=== PATIENT | male | born 1965 | race Caucasian/White ===

== ENCOUNTER 2024-09-30 15:32 | Inpatient (IN) | payer BC, SELFPAY ==
[2024-09-30] VITALS (15 sets, daily range): BP systolic 116–185; BP diastolic 69–101
[2024-09-30 11:47] LABS: Hematocrit 46.1 % (39.0-52.0); Hemoglobin 15.8 g/dL (13.0-18.0); Mean Corp Hgb Conc. 34.3 g/dL (33.0-37.0); Mean Corpuscular Volume 95.4 fL (80.0-94.0); Nucleated Red Blood Cells % 0 % (-); Platelet Count 231 10^3/uL (130-400); Red Cell Dist. Width 12.9 % (11.5-14.5)
[2024-09-30] MEDS: NITROSTAT (SUBLINGUAL) 0.4 MG SL ×2 (11:49→12:01)
[2024-09-30] MEDS: LOW STRENGTH ASPIRIN 324 MG PO (11:51)
--- NOTE | 2024-09-30 11:54 | ED.GENMED ---
History of Present Illness
General
Chief Complaint: Chest Pain
Source: patient
Exam Limitations: none
Time Seen by Provider: 09/30/24 11:40
History of Present Illness
History of Present Illness:
See MDM
Phy Exam
Physical Exam
Physical Exam:
See MDM
Scores
Heart Score for Chest Pain Patients
STEMI patient?: Yes
Course
Orders/Labs/Results
Orders:
Orders
09/30/24 Lunch
Cholesterol Lowering
At Your Request: Full Participation
Does patient need a safe tray?: No
Cholesterol Lowering: Sodium, 2 Gram
09/30/24 11:32
Electrocardiogram (*1) Urgent
Reason for Study: Chest Pain
Cardiac Monitoring- Treatment ONCE
EKG- Treatment ONCE
IV Insert/Care/Rem.- Treatment PRN
O2 Therapy [RESP] Urgent
Titrate/Wean O2 to maintain O2 sat greater than (%): 90
Special Instructions: Maintain sats >/=90%
Pulse Ox/spot Check [RESP] Urgent
Quantity: 1
Special Instructions: ON ROOM AIR
09/30/24 11:38
Complete Blood Count/With Diff Urgent
Comprehensive Metabolic Panel Urgent
Troponin I Urgent
09/30/24 11:43
Nitroglycerin Sublingual [Nitrostat (Sublingual)] 0.4 mg .ROUTE .STK-MED ONE
09/30/24 11:46
Aspirin Chewable [Low Strength Aspirin] 324 mg PO NOW STA
Nitroglycerin Sublingual [Nitrostat (Sublingual)] 0.4 mg .ROUTE .STK-MED ONE
Nitroglycerin Sublingual [Nitrostat (Sublingual)] 0.4 mg SL NOW STA
09/30/24 11:57
PTT Urgent
09/30/24 12:00
Nitroglycerin Sublingual [Nitrostat (Sublingual)] 0.4 mg SL NOW STA
09/30/24 12:21
0.9% Sodium Chloride 1000 ml [Nss] 1,000 ml IV BOLUS
09/30/24 13:28
Code Status As Directed
Resuscitation Status: Full Code
Activity As Directed
Activity Level: Out of Bed- Ad Sarah
Activity Frequency: Ad Sarah
Mold Maker Apprentice Procedure As Directed
Cardiac Cath Procedure: cardiac catheterization
Notify MD As Directed
Notify physician if: immediately for chest pain or bleeding from access site(s)
Radial Artery Hemostasis Method As Directed
Instructions:: 3 mL out at 1 hour post placement of band
3 mL out at 1 1/2 hours post placement of band
3 mL out at 2 hours post placement of band
Off at 2 1/2 hours post placement of band
If any oozing or hemotoma occurs:: re-inflate band and call provider
Site Checks As Directed
Check access site for bleeding/hematoma: Yes
Comment: on arrival, Q15min x4, Q30min x2, Q1 hr x2, Q2 hr x2, Q4 hr or per
protocol
Vascular Checks As Directed
Location: distal to access site - pulse check
Frequency: Other
Comment: on arrival, Q15min x4, Q30min x2, Q1 hr x2, Q2 hr x2, Q4 hr or per protocol
Vital Signs As Directed
Frequency: Other
Additional Instructions:: on arrival, Q15min x4, Q30min x2, Q1 hr x2, Q2 hr x2, then Q4 hr or per unit
protocol
09/30/24 13:35
Metoprolol [Lopressor] 12.5 mg PO BID
09/30/24 13:56
Cardiothoracic Surgery Consult Urgent
Consulting Provider: Joshua Hilliard
Was physician already notified: Yes
Reason for Consult: MV CAD
09/30/24 14:11
Heparin Protocol- PTT Orders As Directed
PTT per Heparin protocol: -Obtain CBC and baseline PTT - if not already collected.
-Obtain PTT 6 hours from start of infusion. Then, every 6 hours until 2 consecutive
PTT's are therapeutic. Then, PTT Daily.
-With each rate change, obtain PTT every 6 hours until 2 consecutive PTT's are
therapeutic. Then, PTT Daily.
Notify MD As Directed
Notify physician if: PTT is greater than or equal to 200.
09/30/24 14:15
Heparin 11237 Units/250 ml 25,000 units in 250 ml IV PER PROTOCOL
Weight to be used for heparin protocol in kilograms (kg):: 96.8
Protocol:: Cardiac Tx/Acute Coronary
PTT Goal Range to be used:: PTT 73 to 111 seconds
Order type:: Initial
INITIAL Infusion Dose (UNITS/KG/hr) & then follow protocol:: 15 units/kg/hr
Infusion Dose in UNITS/hr & then follow protocol (UNITS/hr):: 1,450
INFUSION RATE in mL/hr & then follow protocol (mL/hr):: 14.5
PTT less than or equal to 64 seconds:: Increase rate by 200 units/hr (+ 2 mL/hr)
PTT 64.1 to 72.9 seconds:: Increase rate by 100 units/hr (+ 1 mL/hr)
PTT 73 to 111 seconds:: Target Range. No change in rate.
PTT 111.1 to 130.9 seconds:: Decrease rate by 100 units/hr (- 1 mL/hr)
PTT 131 to 199.9 seconds:: HOLD for 1 hr. Then decrease rate by 200 units/hr (- 2 mL/hr)
PTT greater than or equal to 200 seconds:: HOLD for 2 hrs & Notify Provider. Then decrease by 200 units/hr (-
2 mL/hr)
Lab follow-up:: Each change, PTT q6h until 2 consecutive are therapeutic. Then PTT
daily.
09/30/24 14:30
Complete Blood Count/No Diff Urgent
Comment: Obtain baseline before beginning heparin infusion if not already collected
PTT Urgent
Comment: Obtain baseline before beginning heparin infusion if not already collected
09/30/24 14:34
Blood Pressure Bilateral Upper Extremities As Directed
Instructions:: If not already done obtain and record bilateral upper extremity bp.
Notify physician/PA/URBAN PLANNING TEACHER:: notify cardiac surgery PA, URBAN PLANNING TEACHER, or MD of a 20 mmHg or greater different.
Blood Pressure LEFT Upper Extremity ONCE
Blood Pressure RIGHT Upper Extremity ONCE
Rx Incentive Spirometry [RESP] Routine
Frequency: q1h while awake
Comment: instruction and assessment for postop 10 times x q1hr
09/30/24 15:20
Ticagrelor [Brilinta] 180 mg .ROUTE .STK-MED ONE
09/30/24 15:21
Heparin 5,000 units .ROUTE .STK-MED ONE
09/30/24 15:57
Type+Screen Routine
Troponin I Urgent
09/30/24 18:00
Rosuvastatin Calcium [Crestor] 20 mg PO QPM
09/30/24 19:00
Heparin 55190 Units/250 ml 25,000 units in 250 ml IV PER PROTOCOL
Weight to be used for heparin protocol in kilograms (kg):: 96.8
Protocol:: Cardiac Tx/Acute Coronary
PTT Goal Range to be used:: PTT 73 to 111 seconds
Order type:: Initial
INITIAL Infusion Dose (UNITS/KG/hr) & then follow protocol:: 15 units/kg/hr
Infusion Dose in UNITS/hr & then follow protocol (UNITS/hr):: 1,450
INFUSION RATE in mL/hr & then follow protocol (mL/hr):: 14.5
PTT less than or equal to 64 seconds:: Increase rate by 200 units/hr (+ 2 mL/hr)
PTT 64.1 to 72.9 seconds:: Increase rate by 100 units/hr (+ 1 mL/hr)
PTT 73 to 111 seconds:: Target Range. No change in rate.
PTT 111.1 to 130.9 seconds:: Decrease rate by 100 units/hr (- 1 mL/hr)
PTT 131 to 199.9 seconds:: HOLD for 1 hr. Then decrease rate by 200 units/hr (- 2 mL/hr)
PTT greater than or equal to 200 seconds:: HOLD for 2 hrs & Notify Provider. Then decrease by 200 units/hr (-
2 mL/hr)
Lab follow-up:: Each change, PTT q6h until 2 consecutive are therapeutic. Then PTT
daily.
09/30/24 20:00
Valsartan [Diovan] 20 mg PO BID
10/01/24 01:43
Cardiovascular Evaluation IN AM
Complete Blood Count/No Diff IN AM
Glycohemoglobin (HgbA1c) IN AM
Lipoprotein a (Lp a) [S] IN AM
PTT IN AM
Prothrombin Time IN AM
Troponin I Q8H
10/01/24 07:00
CT Chest W/o Iv Contrast Urgent
Reason For Exam: pre-operative cardiothoracic surgery
10/01/24 08:00
Aspirin Chewable [Low Strength Aspirin] 81 mg PO DAILY
10/02/24
Echo 2D MMode Color/Doppler Urgent
Reason for Study: nstemi
Cardiology Consult: Lam Patrick
10/02/24 05:11
Complete Blood Count/No Diff Q2D
Comment: Notify if platelet count is <130,000 or decreases by 50% from baseline
10/02/24 14:34
US Cerebrovascular Urgent
Reason For Exam: pre-operative cardiothoracic surgery
US Palmar Arch Artery Dupl LT Urgent
Reason For Exam: radial conduit evaluation
10/04/24 06:00
Complete Blood Count/No Diff Q2D
Comment: Notify if platelet count is <130,000 or decreases by 50% from baseline
10/06/24 06:00
Complete Blood Count/No Diff Q2D
Comment: Notify if platelet count is <130,000 or decreases by 50% from baseline
10/08/24 06:00
Complete Blood Count/No Diff Q2D
Comment: Notify MD if platelet count is <130,000 or decreases by 50% from baseline
10/10/24 06:00
Complete Blood Count/No Diff Q2D
Comment: Notify MD if platelet count is <130,000 or decreases by 50% from baseline
10/12/24 06:00
Complete Blood Count/No Diff Q2D
Comment: Notify MD if platelet count is <130,000 or decreases by 50% from baseline
10/14/24 06:00
Complete Blood Count/No Diff Q2D
Comment: Notify MD if platelet count is <130,000 or decreases by 50% from baseline
10/16/24 06:00
Complete Blood Count/No Diff Q2D
Comment: Notify MD if platelet count is <130,000 or decreases by 50% from baseline
Abnormal Lab Results
09/30/24 09/30/24 09/30/24
11:38 12:49 14:30
WBC 11.6 H 10^3/uL 12.2 H 10^3/uL
(4.8-10.8) (4.8-10.8)
MCV 95.4 H fL 95.4 H fL
(80.0-94.0) (80.0-94.0)
MCH 32.7 H pg 33.2 H pg
(27.0-31.0) (27.0-31.0)
Abs Immat Gran (auto) 0.1 H 10^3/uL
(0-0.05)
Absolute Neuts (auto) 9.1 H 10^3/uL
(1.4-6.5)
Neutrophils % 78.8 H %
(42.2-75.2)
Lymphocytes % 15.5 L %
(20.5-51.1)
APTT > 200 H* Sec
(23.4-35.0)
Chloride 109 H mmol/L
(98-107)
BUN 24 H mg/dl
(9-20)
Glucose 164 H mg/dl
(70-99)
Troponin I 0.806 H* ng/ml
POC ACT Low Range 232 H Seconds
(116-155)
09/30/24 14:30
09/30/24 11:38
Vital Signs
Initial and Last Documented VS:
Initial Vital Signs
Temp Pulse Resp BP Pulse Ox
97.8 F 85 20 164/89 98
09/30/24 11:32 09/30/24 11:32 09/30/24 11:32 09/30/24 11:32 09/30/24 11:32
Last Documented Vital Signs
Temp Pulse Resp BP Pulse Ox
99.9 F 94 16 116/57 94
10/02/24 11:06 10/02/24 12:30 10/02/24 11:06 10/02/24 11:07 10/02/24 11:06
MDM/Problems Addressed
Differential Diagnosis Includes:
HPI and MDM Narrative:
58-year-old male presenting with chest pressure and shortness of breath about an hour ago while he was riding his bike. Symptoms have been persistent but have improved. EKG was performed in triage. Although it does not read as a STEMI, the EKG
was brought back to me and there is concern for ST elevation in the inferior leads. Patient was brought back immediately and I assessed him. Patient still complaining of mild pressure rated as a 2/10. At this point, I discussed the case with
cardiology and we decided to call this as a STEMI alert based on his symptoms and the EKG finding
From a risk standpoint, patient states he has a family history of coronary artery disease. He denies a prior history of smoking but does indicate he has a history of high cholesterol but does not take medicines.
Patient was already given aspirin and nitroglycerin before the stimulator was called. IV fluids were started given that the concern for the STEMI is inferior. Blood pressure tolerated the nitroglycerin. After the STEMI alert was called, patient
given Brilinta and heparin bolus
Physical exam
General: Well appearing and non-toxic
HEENT: protecting airway
Neck: appears supple
CV: No evidence of cyanosis. Regular rate and rhythm
Resp: No accessory muscle use
Abd: Non-distended
Extremities: No deformities
Neuro: alert
Psych: Normal affect
Skin: Intact
Problems Addressed including Acute and Chronic Conditions affecting care:
1. STEMI
Acuity: acute
Prognosis: unstable
Details: Patient loaded with aspirin, Brilinta and heparin. Given the concern for inferior WI, will monitor blood pressure while giving nitro. IV fluid started
Updates
Interventional cardiology came to bedside and brought patient up to Mold Maker Apprentice
Differential Diagnosis (but not limited to): STEMI, NSTEMI
Testing considered: Chest x-ray
Drug therapy (if applicable): OTC meds, please see d/c instruction regarding Rx drugs
Amount and/or Complexity of Data Reviewed
Clinical info obtained from: Patient
External data reviewed: N/A
Labs I independently reviewed (but not limited to): Elevated troponin
Radiology: N/A
Pulse Ox: not hypoxic
EKG independently reviewed: Sinus rhythm, ST elevation inferiorly, normal axis
Movie Editor: Sinus rhythm
Critical Care: 33 min
Risk of Complication:
Social Determinants of health: Good social support
Discussed with other providers: Interventional cardiology
Escalation of Care includes Admit/Obs: Given the concern for STEMI, patient sent to the Mold Maker Apprentice
Occasional wrong word or 'sound a like' substitutions may have occurred due to the inherent limitations of voice recognition software. Read the chart carefully and recognize, using context, where substitutions have occurred.
*Pulse Oximetry
SaO2: 98
Oxygen Mode of Delivery: Room air
Patient hypoxic: no
*Critical Care Note
Total Time (30-74mins, 75-104mins- exclusive of procedures): 33 min
comment:
The high probability of a clinically significant, sudden or life threatening deterioration of the cardiovascular system(s) required my full and direct attention, intervention and personal management. The aggregate critical care time was 33 minutes.
This time is in addition to time spent performing reported procedures but includes the following:
[x] Data Review and interpretation
[x] Patient assessment and monitoring of vital signs
[x] Documentation
[x] Medication orders and management
ED Attending Note
-
Portions of this chart may have been created with voice recognition software.� Occasional wrong word or��sound alike� substitutions may have occurred due to the inherent limitations of voice recognition software.
Discharge Plan
Departure
Patient Disposition: [facility]
Date of Disposition: 09/30/24
Time of Disposition: 12:08
Admit to: electroplating laborer
Presentation/result/management discussed w/ accepting MD/DO: Interventional Cardiology
Discharge Problem:
ST elevation (STEMI) myocardial infarction
Interventions
Interventions:
*Risk Screen - Suicide Last Done: 09/30/24 11:32
*General Assessment Last Done: 09/30/24 12:41
*Neglect/Abuse Screening Last Done: 09/30/24 11:32
*ED- Fall Risk Assessment Last Done: 09/30/24 12:41
*ED COVID-19 Vaccine History Last Done: 09/30/24 12:41
*Nursing Disposition Last Done: 09/30/24 12:41
ED- Cardiac Assessment Last Done: 09/30/24 12:41
[2024-09-30 12:00] LABS: ALT (SGPT) 34 U/L (0-50); AST (SGOT) 43 U/L (17-59); Albumin 4.9 g/dl (3.5-5.0); Alkaline Phosphatase 47 U/L (38-126); Blood Urea Nitrogen 24 mg/dl (9-20); Calcium 10.0 mg/dl (8.4-10.2); Carbon Dioxide 22 mmol/L (22-30); Chloride 109 mmol/L (98-107); Glucose 164 mg/dl (70-99); Potassium 4.7 mmol/L (3.5-5.1); Sodium 143 mmol/L (135-145); Total Protein 7.9 g/dl (6.3-8.2); eGFR > 60.00
[2024-09-30 12:15] LABS: APTT 24.2 Sec (23.4-35.0)
[2024-09-30] MEDS: NSS 1000 IV (12:22)
--- NOTE | 2024-09-30 12:25 | EDRN ---
cardiology at bedside.
--- NOTE | 2024-09-30 12:32 | CON.CAR ---
Consultation
Consultation Request
Date/Time Consultation Requested: 09/30/2024
Date/Time Consultation Performed: 09/30/2024
Requesting Provider: Paramjit Cutler
Performing Provider: Paramjit Cutler
Reason for Consultation: inferior STEMI
Medical History
-
Chief Complaint: shortness of breath
History of Present Illness:
58-year-old male presenting with reported chest pressure and shortness of breath one hour prior to presentation while he was riding his bike. He says symptoms became worst after he had stopped riding and slowly imporved. He has had chest congestion
and more mild shortness of breath this week. On my interview with the patient, he endorses the shortness of breath symptoms today but no chest pain. No diaphoresis, nausea, emesis, lightheadedness, diziness, or palpitations. EKG was performed in
triage and perportedly demonstrated STEMI. Follow up EKG performed by me showed borderline inferior ST elevations and reciprocal changes. gold leaf laborer activated in this setting given concern for acute IN.
Patient states he has a family history of coronary artery disease. Personal history of HLD. Takes no meds.
In ED patient received 325 ASA, 180 ticag, and heparin bolus. Received nitro SL given hypertension.
Past Medical History
Past Medical History: Hypercholesterolemia
Social History
Tobacco: Non-Smoker
Family History
Family History: CAD
Allergies / Home Medications
Allergy/AdvReac Type Severity Reaction Status Date / Time
No Known Allergies Allergy Verified 09/30/24 12:11
Review of Systems
-
Respiratory: Trouble Breathing
Physical Exam
Vital Signs
Temp Pulse Resp BP Pulse Ox
36.6 C 85 20 128/69 98
09/30/24 11:32 09/30/24 11:32 09/30/24 11:32 09/30/24 12:06 09/30/24 11:57
Lab Results
09/30/24 11:38
09/30/24 11:38
Physical Exam
General: Well Developed
HEENT: Normocephalic
Cardiac: Regular Rhythm
Skin: Warm
Neuro: AO x 3
Psych: Calm
Impression / Plan
-
On personal interview with patient, he reports shortness of breath for the past week, worse today while biking and particularly after he stopped biking due to the pain. EKG with borderline inferior ST changes. Agree with emergent medical laboratory technical officer activation.
--> coronary angiography to define anatomy with possible PCI
--> further recs to follow
Data Reviewed
-
EKG: Tracing Personally Visualized and interpreted, Report Reviewed by me, Discussed with Physician, Discussed with Patient and Discussed with Family
Labs: Labs Reviewed by me
Critical Care Time (in minutes): 35
[2024-09-30 12:41] LABS: Troponin I 0.806 ng/ml
[2024-09-30 12:57] LABS: ACT-LR - POC 232 Seconds (116-155)
--- NOTE | 2024-09-30 13:18 | ITS.CL.PN ---
[facility] - Procedure Note
Procedure
Procedure Note:
CARDIAC CATHETERIZATION REPORT
Date of Procedure: 09/30/2024
Referring: Dr. Paramjit Cutler MD
Indication: inferior STEMI
PROCEDURE(S)
1. right heart catheterization
2. left heart catheterization
3. coronary angiography
ACCESS
1. 6F right radial artery (closure: radial band)
2. 6F right femoral vein (closure: manual hemostasis)
CATHETERS
1. 6F [place]
2. 6F JR4
3. 6F JL3.5
MODERATE SEDATION: 25 minutes of moderate sedation was utilized. An independent diploma medical assistant was present to assist with and help manage the patient's level of consciousness and physiologic status.
HEMODYNAMIC DATA
LV 131/17 (EDP 32) mmHg
AO 121/80 (mean 100) mmHg
RA 16 mmHg
RV 39/11 (EDP 19) mmHg
PA 36/22 (mean 28) mmHg
PCWP 22 mmHg
SaO2 98.9%
SvO2 70.6%
Hb 14.4 g/dL
CO/CI 4.98/2.26 L/min/m2
SVR 1350 dsc*-5
PVR 1.2 [place] units
CORONARY ANGIOGRAPHY
Dominance: Right
LM: Short vessel, no significant disease
LAD: Large vessel giving rise to a moderate caliber D1 and large branching D2. There is a 50 to 60% ostial LAD stenosis with significant pressure dampening on engagement with a 6 [place] guide. There is a serial smooth 40% stenosis just after D1.
Otherwise the vessel has diffuse mild disease.
LCx: Large vessel giving rise to a single large branching OM. There is a 95% ostial stenosis and otherwise mild disease.
RCA: Large vessel with a 100% thrombotic occlusion in the midportion. The RPDA fills via faint [id number] septal collaterals which appear to retrograde fill a likely large RPL system.
RADIATION: dose for 78 mGy; DAP 41 Gy*cm2; fluoroscopy time 7.6 min
CONCLUSIONS
1. Severe triple-vessel coronary artery disease as described.
2. Elevated biventricular filling pressures, moderate postcapillary pulmonary hypertension, and low normal cardiac index.
3. No aortic stenosis on hemodynamic pullback.
RECOMMENDATIONS
1. Presentation is consistent with acute heart failure in the setting of likely subacute closure of his RCA and concomitant severe LCx/LAD disease. The patient is not having acute ischemic symptoms and not in cardiogenic shock. Thus, the benefit of
urgent percutaneous revascularization of the RCA is unclear, and he will benefit most from multi-vessel CABG with FERNANDES to LAD and additional grafts to the large OM and the RPDA. It would be reasonable to also consider grafting the large branching D2
given his diffuse mid-LAD disease may eventually compromise retrograde filling of the D2. It may be reasonable to revascularize a large RPL branch if found, given that the faint nature of the collaterals did not allow full delineation of the distal
RCA system and adaquate backfilling of the RPL from the RPDA cannot be assured.
2. Diuresis with 40 IV lasix, then PRN
3. cont. asa daily, stop P2Y12 (note 180 ticag given at about 12 PM on 09/30)
4. high intensity statin for eventual goal LDL<55, check Lp(a)
5. check A1c
6. metop tartrate titrated to goal HR 60-80
7. low dose valsartan to be held per CTS prior to OR
Signed: Joshua Hilliard MD, PhD
--- NOTE | 2024-09-30 13:57 | W.PN.UPDATE ---
Update Note
Progress Note Update
Coronary angiography performed demonstrating severe MV CAD, RHC with elevated biventricular filling pressures without cardiogenic shock. Will admit for urgent CABG eval.
RECOMMENDATIONS
1. Presentation is consistent with acute heart failure in the setting of likely subacute closure of his RCA and concomitant severe LCx/LAD disease. The patient is not having acute ischemic symptoms and not in cardiogenic shock. Thus, the benefit of
urgent percutaneous revascularization of the RCA is unclear, and he will benefit most from multi-vessel CABG with FERNANDES to LAD and additional grafts to the large OM and the RPDA. It would be reasonable to also consider grafting the large branching D2
given his diffuse mid-LAD disease may eventually compromise retrograde filling of the D2. It may be reasonable to revascularize a large RPL branch if found, given that the faint nature of the collaterals did not allow full delineation of the distal
RCA system and adaquate backfilling of the RPL from the RPDA cannot be assured.
2. Diuresis with 40 IV lasix, then PRN
3. cont. asa daily, stop P2Y12 (note 180 ticag given at about 12 PM on 09/30)
4. high intensity statin for eventual goal LDL<55, check Lp(a)
5. check A1c
6. metop tartrate titrated to goal HR 60-80
7. low dose valsartan to be held per CTS prior to OR
8. maintain heparin drip until OR
9. currently no active ischemia or cardiogenic shock so IABP deferred; if concern for worsening ischemia, may need to reconsider
10. timing of CABG per CTS given received ticag 180 today (09/30)
11. trend trop to peak
[2024-09-30 14:40] LABS: Hematocrit 45.4 % (39.0-52.0); Hemoglobin 15.8 g/dL (13.0-18.0); Mean Corp Hgb Conc. 34.8 g/dL (33.0-37.0); Mean Corpuscular Volume 95.4 fL (80.0-94.0); Platelet Count 227 10^3/uL (130-400); Red Cell Dist. Width 12.9 % (11.5-14.5)
--- NOTE | 2024-09-30 15:01 | CONSULT.CT ---
Consultation
-
Date/Time Consultation Performed: 09/30/2024, 1500
Requesting Provider: Joshua Grace MD
Performing Provider: Abner Fowler PA-C
Reason for Consultation: Multivessel coronary artery disease, eval for CABG
Patient History
Physicians
Outpatient Staff Nurse Midwife: None
Inpatient Staff Nurse Midwife: Joshua Grace MD
History of Present Illness
Patient is a 58-year-old male who presented to the hospital today with complaints of intermittent shortness of breath and left arm discomfort. These episodes came on particular with riding his bike and were relieved with rest. He has had several
escalating episodes over the past week or so. He decided to come in today for evaluation of the emergency department. EKG was significant for ST elevation in the inferior leads. STEMI team was activated and the patient was taken urgently to the
[facility] for evaluation. Cardiac cath reveals a subacute occlusion of his right coronary artery as well as a left main equivalent with ostial LAD and circumflex lesions as well as faint [id number]-yx-[id number] collaterals. Decision was made at this time to
hold off on revascularization and consider CABG as a definitive revascularization strategy. Balloon pump was entertained however patient stabilized and his chest pain resolved.
Currently the patient is resting comfortably in bed post cath. His right radial was utilized for access. He denies any significant past medical history and is on no medications at home. He does relate that his cholesterol has been elevated in the
past but this is currently [id number]-xorc-[id number]. He has never had a CVA or TIA, bleeding or clotting disorders that he is aware of, melena or hematochezia, chest surgeries or procedures, no history of chemo or radiation, no history of COPD or asthma, no
history of prior MIs or arrhythmias. He does have a significant family history of heart disease. He has never smoked, consumes alcohol socially, and he runs a [employer]. He is independent in his ADLs.
Past Medical History
Past Medical History: Hypercholesterolemia (Diet controlled)
Past Surgical History
Left renal cancer removal
UroLift
Inguinal hernia repair
Family History
Family Medical History: CAD
Social History
Alcohol: Occasional
Drug: None
Tobacco: Non-Smoker
Employment: Employed
Allergies
Allergy/AdvReac Type Severity Reaction Status Date / Time
No Known Allergies Allergy Verified 09/30/24 12:11
Review of Systems
-
History Source: Patient and Family
General: Reports No Symptoms
HEENT: Reports No Symptoms
Respiratory: Reports SOB and CALIXTO
Cardiac: Reports No Symptoms
Abdomen/GI: Reports No Symptoms
: Reports No Symptoms
Musculoskeletal: Reports No Symptoms
Skin: Reports No Symptoms
Neurological: Reports No Symptoms
Vascular: Reports No Symptoms
Physical Exam
Vital Signs
Temp 97.8 F 09/30/24 13:48
Temp route: Oral 09/30/24 13:48
Pulse 80 09/30/24 14:30
Rhythm: Normal sinus rhythm 09/30/24 13:54
Resp Rate 16 09/30/24 13:48
Blood pressure 144/95 09/30/24 12:28
Blood pressure extremity used: Left upper arm 09/30/24 13:48
Position: Lying 09/30/24 13:48
MAP (cuff-Raudel Monitor) 110 09/30/24 12:28
SaO2 100 09/30/24 14:30
Oxygen Mode of Delivery Room air 09/30/24 13:54
Can the patient verbally communicate their pain? Yes 09/30/24 13:54
Pain scale ratin 09/30/24 12:06
Actual Weight 96.8 kg 09/30/24 14:10
Body Mass Index (BMI) 0.0 09/30/24 14:11
Labs
09/30/24 14:30
09/30/24 11:38
APTT 24.2 Sec (23.4-35.0) 09/30/24 11:57
Troponin I Cancelled 09/30/24 14:30
Exam
General: Well Developed, Well Nourished and No Apparent Distress
HEENT: Normocephalic and Anicteric
Neck: Trachea Midline
Respiratory: Clear
Cardiac: S1/S2 and Regular Rhythm
GI: Soft, Non Tender and Non Distended
Rectal: Deferred by Provider
Skin: Warm and Dry
Neuro: Awake, Alert and Oriented
Psych: Calm
Assessment / Plan
-
#Multivessel CAD, Left main equivalent, subacute occlusion of RCA
Given the patient's young age, multivessel coronary disease, and left main equivalent, we will consider CABG as the definitive revascularization strategy. I discussed the perioperative expectations with the patient and his and answered their
questions to their satisfaction. Preoperative risk stratification has been ordered. The patient will be independently evaluated by the attending surgeon who will comment definitively on the patient's surgical candidacy/timing. The patient was
given 180 mg of ticagrelor in the emergency department. Under normal circumstances this would require a 5-day washout. Given the patient's disease pattern he may require more urgent surgery or intra-aortic balloon pump should he become symptomatic
unresponsive to medical management. Given this we will obtain platelet mapping & TEG to assess response and/or coagulation cascade derangements. We will obtain vascular studies including a palmar arch evaluation this weekend should more urgent
surgery need to be pursued. Medical management of CAD per cardiology in the interim.
#Hyperlipidemia
Checking lipid panel. Will need high intensity statin post op for secondary prevention.
Data Reviewed
-
EKG: Tracing Personally Visualized and interpreted
[facility]: Image Personally Visualized and interpreted and Report Reviewed by me
Labs: Labs Reviewed by me
Total Time Spent with Patient (in minutes): 51
[2024-09-30 15:12] LABS: APTT > 200 Sec (23.4-35.0)
[2024-09-30] MEDS: LOPRESSOR 12.5 MG PO ×2 (15:44→22:10)
[2024-09-30 16:21] LABS: APTT 78.7 Sec (23.4-35.0)
[2024-09-30 16:36] LABS: Troponin I 1.540 ng/ml
[2024-09-30] MEDS: CRESTOR 20 MG PO (17:49)
--- NOTE | 2024-09-30 18:30 | PTCARENOTE ---
Pt from ED received post cardiac cath done via right radial arteryand right femoral vein. Pt reported SOB on arrival to IVU, oxygen sat. 99% on room air , resp rate 16. Pt diuresed >1800mls after receiving IV lasix and stated that he felt a little
better. Right radial band removed with problem, right femoral vein dressing dry and intact, no sign of bleeding or hematoma at either site. Telemetry shows sinus rhythm with 2 runs of 4 beats of NSVT. Troponins still trending upwards. Plan to start
IV heparin tonight.
[2024-09-30] MEDS: HEPARIN 25000 UNITS/250 ML IV (19:04)
[2024-09-30] MEDS: DIOVAN 20 MG PO (19:30)
[2024-09-30] MEDS: TYLENOL 650 MG PO (19:31)
--- NOTE | 2024-09-30 19:40 | PTCARENOTE ---
Pt rec'd at change of shift surrounded by family. No c/o cp. Pt does c/o mild CALIXTO, lungs clear r/a 98%. H/A 4 out of 10 Tylenol given. Heparin gtt started as prescribed at 1450 unit/hr.
--- NOTE | 2024-09-30 22:29 | PTCARENOTE ---
Pt remains cp free. still with mild h/a. cath sites intact.
[2024-10-01] VITALS (25 sets, daily range): BP systolic 79–162; BP diastolic 60–98; BMI 30.2
[2024-10-01] MEDS: TYLENOL 650 MG PO ×2 (01:40→23:10)
[2024-10-01] MEDS: NITROSTAT (SUBLINGUAL) 0.4 MG SL (01:42)
[2024-10-01 02:07] LABS: Hematocrit 42.7 % (39.0-52.0); Hemoglobin 15.0 g/dL (13.0-18.0); Mean Corp Hgb Conc. 35.1 g/dL (33.0-37.0); Mean Corpuscular Volume 93.0 fL (80.0-94.0); Platelet Count 234 10^3/uL (130-400); Red Cell Dist. Width 13.0 % (11.5-14.5)
--- NOTE | 2024-10-01 02:08 | PTCARENOTE ---
At 0130 went to pt's room to get am labs and VS. At that time pt stated ' I've been up about 10 mins every half an hour with left wrist pain. It's waking me up.' Pt denied pain radiating up arm. No swelling noted in wrist , good pulse. Pt appeared
anxious and while assessing pt he stated its back and really hurting again'. ecg completed, am labs drawn and sent right away. CT PA called to come see pt. O2 placed, SL NTg given. B/P post Ntg dropped to 79/60. Pt became diaphoretic,pale. At 0148
pt went into slow VT, lasting approx 40 beats. IVF started and after few mins b/p improved. See VS caption. Cardiology made aware of pts status by CT PA. Pt currently is resting. labs remain pending at this time.
[2024-10-01 02:11] LABS: INR 1.03; PT 13.8 Sec (11.4-14.6)
[2024-10-01 02:12] LABS: APTT 45.0 Sec (23.4-35.0)
--- NOTE | 2024-10-01 02:15 | W.PN.UPDATE ---
Update Note
Progress Note Update
-at 1:40 am came in urgently to evaluate pt for stuttering L hand pain, which he has been experiencing for about a week and may be his anginal equivalent. It feels 'achy, like it has been injured' 4/10 in intensity and comes and goes. He denies any
chest pressure, jaw or abdominal pain or nausea. SBP 150/98, in nsr 78 bpm, pOx 96% on 2L. Gave 1 sl Nitro and BP dropped to 79/60. Pt became diaphoretic and uncomfortable. He was noted to have a long run of 18 beats of AIVR, followed by brief
junctional rhythm and another 27 beat AIVR. 250 IVF were started and R2 pads placed on. BP recovered to 125/81, pt felt better and said that hand pain resolved. Got Tylenol for LOPEZ also. ECG without acute change with evidence of subacute inferior SD
(Q waves and ST elevation inferiorly).
-reviewed the episode and ECG with Dr. Hilliard- agreed with gentle fluids and no further Nitro.
-pt is comfortable now, denies any hand pain or any new sxs. Will give iv Morphine if any further sxs
-continue iv Heparin
-will continue to monitor closely
[2024-10-01 02:19] LABS: ALT (SGPT) 47 U/L (0-50); AST (SGOT) 239 U/L (17-59); Albumin 4.5 g/dl (3.5-5.0); Alkaline Phosphatase 47 U/L (38-126); Blood Urea Nitrogen 23 mg/dl (9-20); Calcium 9.3 mg/dl (8.4-10.2); Carbon Dioxide 22 mmol/L (22-30); Chloride 106 mmol/L (98-107); Estimated Creatinine Clearance 110 ml/min; Glucose 128 mg/dl (70-99); HDL Cholesterol 46 mg/dl; LDL Cholesterol, Calculated 214 mg/dl; Potassium 3.8 mmol/L (3.5-5.1); Sodium 137 mmol/L (135-145); Total Protein 7.3 g/dl (6.3-8.2); Very Low Density Lipoprotein 40 mg/dl (0-30); eGFR > 60.00
[2024-10-01] MEDS: KCL 40 MEQ PO (02:37)
[2024-10-01 02:54] LABS: Troponin I 12.800 ng/ml
[2024-10-01] MEDS: MORPHINE SULFATE 2 MG IV (03:13)
[2024-10-01 03:21] LABS: Magnesium 1.9 mg/dl (1.6-2.3)
--- NOTE | 2024-10-01 03:25 | PTCARENOTE ---
Pt called nursing to room c/o left wrist pain again 5 out of 10. Morphine given as ordered. Pt aware to remain on bedrest at this time. Urinal placed at bedside.
[2024-10-01] MEDS: MAGNESIUM SULFATE 102 GRAMS IV (03:53)
[2024-10-01] MEDS: DIOVAN 20 MG PO ×2 (07:30→20:10)
[2024-10-01] MEDS: LOW STRENGTH ASPIRIN 81 MG PO (07:30)
[2024-10-01] MEDS: LOPRESSOR 12.5 MG PO ×2 (07:30→20:10)
[2024-10-01 08:28] LABS: Glycohemoglobin (HgbA1c) 5.5 % (4.0-5.6)
[2024-10-01 09:10] LABS: APTT 60.0 Sec (23.4-35.0)
[2024-10-01 09:39] LABS: Troponin I 18.300 ng/ml
--- NOTE | 2024-10-01 09:39 | W.PN.CD ---
Today's Communication / Plan
-
ASA, heparin drip (with intensive monitoring), metoprolol, valsartan
-brilinta given in ED 09/30 ~12pm
plan for inpatient CABG: surgical eval underway
Impression / Plan
-
58 yo male with PMH of familial hypercholesterolemia is admitted with ACS. Taken to cath emergently for inferior ST elevation. Cath findings (below) suggest more chronic disease, and benefit from surgical revascularization.
# ACS, complex CAD
-threat to life
-cath results below
-became hypotensive after nitro: hold
-ASA, heparin drip (with intensive monitoring), metoprolol, valsartan
-brilinta given in ED 09/30 ~12pm
-plan for inpatient CABG: surgical eval underway
-echo
# Familial hypercholesterolemia
-LDL 214, Lp (a) pending
-has not been on meds for 10yrs
-back on statin: crestor 40mg daily
-may need PCSK9i as outpatient
CATH 09/30
CORONARY ANGIOGRAPHY
Dominance: Right
LM: Short vessel, no significant disease
LAD: Large vessel giving rise to a moderate caliber D1 and large branching D2. There is a 50 to 60% ostial LAD stenosis with significant pressure dampening on engagement with a 6 Kyrgyz guide. There is a serial smooth 40% stenosis just after D1.
Otherwise the vessel has diffuse mild disease.
LCx: Large vessel giving rise to a single large branching OM. There is a 95% ostial stenosis and otherwise mild disease.
RCA: Large vessel with a 100% thrombotic occlusion in the midportion. The RPDA fills via faint [id number]-[id number]-[id number] septal collaterals which appear to retrograde fill a likely large RPL system.
Physical Exam
Vital Signs/Labs
Vital Signs
Temp Pulse Resp BP Pulse Ox
98.2 F 79 20 141/98 99
10/01/24 07:24 10/01/24 08:00 10/01/24 07:24 10/01/24 07:00 10/01/24 08:09
09/30/24 10/01/24 10/02/24
06:59 06:59 06:59
Actual Weight 96.8 kg
10/01/24 01:43
10/01/24 01:43
PT 13.8 Sec (11.4-14.6) 10/01/24 01:43
INR 1.03 10/01/24 01:43
APTT 60.0 Sec (23.4-35.0) H 10/01/24 08:51
Magnesium 1.9 mg/dl (1.6-2.3) 10/01/24 01:43
Triglycerides 200 mg/dl (10-149) H 10/01/24 01:43
LDL Cholesterol, Calc 214 mg/dl 10/01/24 01:43
VLDL Cholesterol, Calc 40 mg/dl (0-30) H 10/01/24 01:43
HDL Cholesterol 46 mg/dl 10/01/24 01:43
LAB Results
09/30/24 09/30/24 09/30/24
11:38 14:30 15:04
Troponin I 0.806 H* Cancelled Cancelled
09/30/24 10/01/24 10/01/24
15:57 01:43 01:43
Troponin I 1.540 H* D Cancelled 12.800 H*
Physical Exam
Constitutional: No acute distress and Comfortable
EENT: Moist mucous membranes
Cardiovascular: Rhythm & rate is regular, Pedal edema is absent, JVD pressure is normal and Systolic murmur absent
Respiratory: Respiratory effort normal and Lungs clear to auscul.
Neuro/Psych: AO x 3
Data Reviewed
-
Date of Service: October 01, 2024
EKG: Other (Tele: SR 60s-70s, NSVT, AIVR)
Medical Tests (PFT, Pathology etc): Report Reviewed by me (cath report per note)
Labs: Labs Reviewed by me
[2024-10-01] MEDS: HEPARIN 25000 UNITS/250 ML IV ×2 (10:11→23:03)
[2024-10-01 16:13] LABS: APTT 67.5 Sec (23.4-35.0)
[2024-10-01 16:29] LABS: Troponin I 16.200 ng/ml
[2024-10-01] MEDS: CRESTOR 40 MG PO (17:46)
--- NOTE | 2024-10-01 18:31 | PTCARENOTE ---
Pt reported mild 0.5/10 discomfort in his left wrist throughout the day but no other symptoms. Troponin level peaked at 18.3. Pt OOB and up in his room . CT scan chest done in Dept. Telemetry showed sinus rhythm, no ectopy noted. Heparin infusion
not yet at a therapeutic level.
[2024-10-01 19:48] LABS: B.E. 3.0 mmol/L; HCO3 25.9 mmol/L (21-28); O2 Saturation % 97.7 % (94-98); PCO2 34 mmHg (35-48); PO2 74 mmHg (83-108)
[2024-10-01 23:20] LABS: APTT 84.1 Sec (23.4-35.0)
--- NOTE | 2024-10-01 23:45 | PTCARENOTE ---
Received pt at change of shift resting in bed. SR on tele, HR 80's-90's. Pt denies any chest/left wrist pain at this time. Right radial and femoral sites C.D.I. No bleeding or hematoma noted at this time. Heparin gtt infusing at 1,950 units/hr. PRN
Tylenol administered for discomfort per pt request--see JUN. Call retana within reach.
[2024-10-02] VITALS (8 sets, daily range): BP systolic 116–145; BP diastolic 57–86; BMI 29.9
[2024-10-02 05:19] LABS: Hematocrit 42.1 % (39.0-52.0); Hemoglobin 14.7 g/dL (13.0-18.0); Mean Corp Hgb Conc. 34.9 g/dL (33.0-37.0); Mean Corpuscular Volume 95.0 fL (80.0-94.0); Platelet Count 216 10^3/uL (130-400); Red Cell Dist. Width 12.7 % (11.5-14.5)
[2024-10-02 05:32] LABS: APTT 101.6 Sec (23.4-35.0)
[2024-10-02] MEDS: DIOVAN 20 MG PO (07:57)
[2024-10-02] MEDS: LOW STRENGTH ASPIRIN 81 MG PO (07:58)
[2024-10-02] MEDS: LOPRESSOR 12.5 MG PO ×2 (07:58→19:31)
--- NOTE | 2024-10-02 08:27 | PTCARENOTE ---
Assumed care. Patient denies pain in left arm, tenderness around the right thumb, denies shortness of breath. NSR HR 86, BP 145/86, Temp 100.2 orally
--- NOTE | 2024-10-02 11:29 | W.PN.UPDATE ---
Update Note
Progress Note Update
Procedure Type:�Isolated CABG
Perioperative Outcome Estimate %
Operative Mortality 1.15%
Morbidity & Mortality 6.88%
Stroke 1.07%
Renal Failure 0.767%
Reoperation 2.46%
Prolonged Ventilation 3.86%
Deep Sternal Wound Infection 0.172%
Long Hospital Stay (>14 days) 3.17%
Short Hospital Stay (<6 days)* 58.4%
[2024-10-02 11:46] LABS: AST (SGOT) 153 U/L (17-59); Albumin 4.3 g/dl (3.5-5.0); Alkaline Phosphatase 36 U/L (38-126); Blood Urea Nitrogen 13 mg/dl (9-20); Calcium 9.4 mg/dl (8.4-10.2); Carbon Dioxide 21 mmol/L (22-30); Chloride 106 mmol/L (98-107); Estimated Creatinine Clearance 110 ml/min; Glucose 171 mg/dl (70-99); Potassium 4.4 mmol/L (3.5-5.1); Sodium 136 mmol/L (135-145); Total Protein 6.9 g/dl (6.3-8.2); eGFR > 60.00
[2024-10-02 11:53] LABS: ALT (SGPT) 44 U/L (0-50)
--- NOTE | 2024-10-02 12:34 | W.PN.UPDATE ---
Update Note
Progress Note Update
I met with Mr. Pike and his partner. We discussed his pathology and the planned revascularization. We discussed the risks and benefits of surgery and the conduct. All questions were answered to the best of my ability. His TEG w/ plt mapping shows
no significant inhibition. Will plan for surgery first thing with me tomorrow.
Thank you for involving me in the care of this patient. Please feel free to contact me with any questions or concerns.
Juan David Kearns MD, MS
Cardiothoracic Surgeon
[facility]
This dictation was created using the [employer] dictation system. Please excuse any grammatical, typographical, or 'sound alike' errors.
[2024-10-02] MEDS: HEPARIN 25000 UNITS/250 ML IV (13:18)
--- NOTE | 2024-10-02 15:35 | PTCARENOTE ---
Addendum entered by Bobby Guidry RN 10/02/24 16:11:
Patient febrile 101.8. Urine culture collected and CXR done. Tylenol given
Original Note:
Patient febrile 101.8. Urine culture and CXR ordered
[2024-10-02] MEDS: TYLENOL 650 MG PO ×2 (15:38→22:13)
[2024-10-02 16:12] LABS: Urine Character Clear (Clear)
--- NOTE | 2024-10-02 16:32 | W.PN.CD ---
Today's Communication / Plan
-
CABG tomorrow
Impression / Plan
-
58 yo male with PMH of familial hypercholesterolemia is admitted with ACS. Taken to cath emergently for inferior ST elevation. Cath findings (below) suggest more chronic disease, and benefit from surgical revascularization.
# ACS, complex CAD
-threat to life
-cath results below
-became hypotensive after nitro: hold
-ASA, heparin drip (with intensive monitoring), metoprolol, valsartan
-brilinta given in ED 09/30 ~12pm
-plan for inpatient CABG tomorrow with Dr. Kearns
# ICM, HFrEF
- inferior RWMA, EF 40-45
- metop valsartan
- will titrate GDMT further post-revasc
# Familial hypercholesterolemia
-LDL 214, Lp (a) pending
-has not been on meds for 10yrs
-back on statin: crestor 40mg daily
-may need PCSK9i as outpatient
CATH 09/30
CORONARY ANGIOGRAPHY
Dominance: Right
LM: Short vessel, no significant disease
LAD: Large vessel giving rise to a moderate caliber D1 and large branching D2. There is a 50 to 60% ostial LAD stenosis with significant pressure dampening on engagement with a 6 Telugu guide. There is a serial smooth 40% stenosis just after D1.
Otherwise the vessel has diffuse mild disease.
LCx: Large vessel giving rise to a single large branching OM. There is a 95% ostial stenosis and otherwise mild disease.
RCA: Large vessel with a 100% thrombotic occlusion in the midportion. The RPDA fills via faint rpnk-is-zmbmm septal collaterals which appear to retrograde fill a likely large RPL system.
TTE 10/02
CONCLUSIONS
Left ventricular ejection fraction is 40-45%.
Basal to mid inferior, inferoseptal, and inferolateral hypokinesis.
Normal right ventricular size and function.
Physical Exam
Vital Signs/Labs
Vital Signs
Temp Pulse Resp BP Pulse Ox
38.8 C H 93 16 132/78 98
10/02/24 15:16 10/02/24 16:00 10/02/24 15:16 10/02/24 15:18 10/02/24 15:16
10/01/24 10/02/24 10/03/24
06:59 06:59 06:59
Actual Weight 98.3 kg 97.1 kg
10/02/24 05:11
10/02/24 10:08
PT 13.8 Sec (11.4-14.6) 10/01/24 01:43
INR 1.03 10/01/24 01:43
APTT 101.6 Sec (23.4-35.0) H 10/02/24 05:11
Magnesium 1.9 mg/dl (1.6-2.3) 10/01/24 01:43
Triglycerides 200 mg/dl (10-149) H 10/01/24 01:43
LDL Cholesterol, Calc 214 mg/dl 10/01/24 01:43
VLDL Cholesterol, Calc 40 mg/dl (0-30) H 10/01/24 01:43
HDL Cholesterol 46 mg/dl 10/01/24 01:43
LAB Results
09/30/24 09/30/24 09/30/24
11:38 14:30 15:04
Troponin I 0.806 H* Cancelled Cancelled
09/30/24 10/01/24 10/01/24
15:57 01:43 01:43
Troponin I 1.540 H* D Cancelled 12.800 H*
10/01/24 10/01/24
08:51 15:53
Troponin I 18.300 H* D 16.200 H*
Physical Exam
Constitutional: Comfortable
Cardiovascular: Rhythm & rate is regular
Respiratory: Respiratory effort normal
Neuro/Psych: AO x 3
Data Reviewed
-
Date of Service: October 02, 2024
Medical Decision Making: Reviewed Test Results
EKG: Tracing Personally Visualized and interpreted
Echo: Tracing Personally Visualized and interpreted
Labs: Labs Reviewed by me
[2024-10-02 16:35] LABS: Urine Red Blood Cell 0-2 /HPF (0-2)
--- NOTE | 2024-10-02 17:07 | PTCARENOTE ---
Report given, patient transferred to room 2266
[2024-10-02] MEDS: CRESTOR 40 MG PO (17:19)
--- NOTE | 2024-10-02 17:23 | CM ---
spoke to pt and in room. he is prev indep, lives with his in a 2 story home with 2 steps to enter. we discussed pre op CABG teaching including sternal and driving restrictions, he denies any dme's. he has the ct surgery book. he is
agreeable to a f/u visit from the me transitional care nurse after dc. he will be staying at his [place] home- [address] [place] [facility], after dc. cm role explained and all questions answered. plan is for cabg 10/03, cm to follow.
--- NOTE | 2024-10-02 17:37 | PTCARENOTE ---
Received pt from IVU and bedside report obtained; NSR on monitor and VSS; Heparin infusing see flow sheet for details; Lungs clear; positive bowel sounds; pt voiding yellow urine; palpable pulses throughout; no edema noted; PIV x2 patent; all preop
questions answered and educated pt on Heart pillow/ IS.
--- NOTE | 2024-10-02 20:00 | PTCARENOTE ---
Assumed care of patient at 1900. Patient found resting in bed at time of assessment. Patient is AOx4, follows commands appropriately, and moves all extremities. Lung sounds are clear and equal bilaterally, saO2 98% on RA. Heart sounds are audible,
normal palpable pulses, no observable edema. Patient has active BS in all four quadrants and is voiding in the bathroom. Skin is grossly intact. Patient has R FA PIV receiving heparin at 1950 units/hr and L AC PIV available for intermittent
infusion. No c/o pain. Patient clipped and received CHG bath in prep for surgery tomorrow. Call retana within reach.
[2024-10-02] MEDS: ROCEPHIN 1000 MG IV (22:31)
[2024-10-02] MEDS: STERILE WATER FOR INJECTION 10 ML IV (22:31)
--- NOTE | 2024-10-02 22:48 | PTCARENOTE ---
While assessing vital signs, patient noted to be febrile 101.4 degrees. Patient denied chills however did report 'feeling cold'. Patient's skin warm to touch. No other symptoms present. CT PA notified. Received orders for Rocephin. Tylenol
administered for fever.
--- NOTE | 2024-10-02 23:38 | W.PN.UPDATE ---
Update Note
Progress Note Update
-Pt febrile (TM 101.8), WBC 15.8. Denies symptoms
-U/A suspicious for UTI, culture is pending. Gave stat dose of empiric Rocephin 1g IV, Tylenol 650 mg PO
-CXR is clear
-For CABG in the AM
[2024-10-03] VITALS (14 sets, daily range): BP systolic 89–151; BP diastolic 63–110; BMI 29.7
[2024-10-03] MEDS: HEPARIN 25000 UNITS/250 ML IV (01:44)
[2024-10-03 04:44] LABS: Hematocrit 41.8 % (39.0-52.0); Hemoglobin 14.3 g/dL (13.0-18.0); Mean Corp Hgb Conc. 34.2 g/dL (33.0-37.0); Mean Corpuscular Volume 96.3 fL (80.0-94.0); Nucleated Red Blood Cells % 0 % (-); Platelet Count 214 10^3/uL (130-400); Red Cell Dist. Width 12.8 % (11.5-14.5)
[2024-10-03 04:54] LABS: APTT 73.6 Sec (23.4-35.0)
[2024-10-03 05:43] LABS: ALT (SGPT) 30 U/L (0-50); AST (SGOT) 73 U/L (17-59); Albumin 4.2 g/dl (3.5-5.0); Alkaline Phosphatase 34 U/L (38-126); Blood Urea Nitrogen 16 mg/dl (9-20); Calcium 9.3 mg/dl (8.4-10.2); Carbon Dioxide 22 mmol/L (22-30); Chloride 108 mmol/L (98-107); Estimated Creatinine Clearance 110 ml/min; Glucose 107 mg/dl (70-99); Magnesium 2.1 mg/dl (1.6-2.3); Potassium 4.5 mmol/L (3.5-5.1); Sodium 140 mmol/L (135-145); Total Protein 6.9 g/dl (6.3-8.2); eGFR > 60.00
[2024-10-03] MEDS: PROTONIX 40 MG PO (05:55)
[2024-10-03] MEDS: MAGNESIUM OXIDE 500 MG PO (05:56)
[2024-10-03] MEDS: LOPRESSOR 25 MG PO (05:56)
[2024-10-03] MEDS: BACTROBAN 2% OINTMENT 1 APPLIC NASAL ×2 (06:09→21:06)
--- NOTE | 2024-10-03 06:35 | W.CVOR.SURPR ---
CVOR Surgeon Immed Pre Op
-
I have examined this patient prior to performance of the scheduled procedure.
The patient's condition is unchanged from the time of the dictated/written History and
Physical and the patient is able to undergo the scheduled procedure.
Has history of prostatitis in past
CABG + Sternal Plating + LAAE
--- NOTE | 2024-10-03 06:46 | PTCARENOTE ---
Patient reassessed. Remains SR on the monitor. Final preparations for CVOR. Medications administered. Transferred to OR at approx 0630.
[2024-10-03 07:05] LABS: ACT+ - POC 167 Seconds (82-134)
[2024-10-03 07:24] LABS: Urine Character Clear (Clear)
[2024-10-03 08:11] LABS: Urine Squamous Cell 0-2 /LPF (Few)
[2024-10-03 08:12] LABS: Urine White Cell 0-2 /HPF (0-5)
--- NOTE | 2024-10-03 08:43 | CM ---
Reviewed chart. Mr. Pike is in the operating room today. Prior to admission he resides with his spouse in a two story home with two steps to enter. Prior to admission he was independent with ambulation and adls. He does not have any DME. He has
a prescription plan. Medical work-up in progress. The discharge plan is to return home with his spouse and a home visit by the Transitional Care Nurse when medically stable.
[2024-10-03 08:47] LABS: ACT+ - POC 494 Seconds (82-134)
[2024-10-03 09:15] LABS: ACT+ - POC 464 Seconds (82-134)
[2024-10-03 09:21] LABS: B.E. - POC 1.3 mmol/L; Glucose - POC 113 mg/dl (70-99); HCO3 - POC 26 mmol/L (21-28); Hematocrit - POC 43 % PCV (42-52); Hemodilution- POC No; Hemoglobin Calculated - POC 14.5; Ionized Calcium - POC 1.25 mmol/L (1.15-1.33); Lactate - POC < 0.30 mmol/L (0.36-0.75); O2 Saturation %Calculated-POC 99.9 % (94-98); PCO2 - POC 41 mmHg (35-48); PO2 - POC 309 mmHg (83-108); Potassium - POC 4.4 mmol/L (3.5-5.1); Sodium - POC 141 mmol/L (136-145); Specimen Type - POC Arterial; pH - POC 7.41 (7.35-7.45)
[2024-10-03 09:46] LABS: ACT+ - POC 515 Seconds (82-134)
[2024-10-03 10:11] LABS: B.E. - POC 0.3 mmol/L; Glucose - POC 159 mg/dl (70-99); HCO3 - POC 25 mmol/L (21-28); Hematocrit - POC 33 % PCV (42-52); Hemodilution- POC Yes; Hemoglobin Calculated - POC 11.2; Ionized Calcium - POC 1.07 mmol/L (1.15-1.33); Lactate - POC 0.40 mmol/L (0.36-0.75); O2 Saturation %Calculated-POC 99.9 % (94-98); PCO2 - POC 41 mmHg (35-48); PO2 - POC 289 mmHg (83-108); Potassium - POC 5.4 mmol/L (3.5-5.1); Sodium - POC 137 mmol/L (136-145); Specimen Type - POC Arterial; pH - POC 7.40 (7.35-7.45)
[2024-10-03 10:19] LABS: ACT+ - POC 508 Seconds (82-134)
[2024-10-03 10:32] LABS: B.E. - POC -2.4 mmol/L; Glucose - POC 170 mg/dl (70-99); HCO3 - POC 23 mmol/L (21-28); Hematocrit - POC 39 % PCV (42-52); Hemodilution- POC Yes; Hemoglobin Calculated - POC 13.3; Ionized Calcium - POC 1.06 mmol/L (1.15-1.33); Lactate - POC 1.17 mmol/L (0.36-0.75); O2 Saturation %Calculated-POC 99.2 % (94-98); PCO2 - POC 42 mmHg (35-48); PO2 - POC 150 mmHg (83-108); Potassium - POC 5.9 mmol/L (3.5-5.1); Sodium - POC 137 mmol/L (136-145); Specimen Type - POC Arterial; pH - POC 7.35 (7.35-7.45)
[2024-10-03 10:39] LABS: ACT+ - POC 134 Seconds (82-134)
--- NOTE | 2024-10-03 11:16 | W.PN.CT.SURG ---
CT Surgery Operative Note
-
CARDIAC SURGERY OPERATIVE REPORT
Preoperative Diagnosis: Multivessel Coronary Artery Disease with NSTEMI
Postoperative Diagnosis: Same
Procedure(s) Performed:
1. Standard Sternotomy with Aortic and Right Atrial Cannulation
2. Internal Mammary Artery Harvesting, Left
3. Multi arterial coronary artery bypass grafting x 4 (In situ FERNANDES to LAD, Ao to Radial to OM, Ao to RSVG to high diagonal, Ao to RSVG to RPDA)
4. Endoscopic harvesting of left radial artery and right lower extremity vein
5. Transesophageal echocardiography
6. Placement of Temporary Ventricular Pacing Wires
7. Rigid sternal fixation with 2 plates (16 mm screws throughout)
8. Left atrial appendage exclusion [35 mm device, serial #[id number]]
Date of Surgery: 10/03/2024
Comorbidities:
1. History of UTI and prostatitis
2. Multivessel coronary artery disease
3. STEMI, inferior wall with acute ischemic cardiomyopathy, LV EF of 40% with regional wall motion abnormality
4. Hyperlipidemia
5. Hypertension
Attending Surgeon: Juan David Kearns MD, MS
Assistants: Shelli Stover PA-C (present and necessary to case management assistant, retraction, suction, exposure, suture management, and wound closure under my direction). Juan David Greene PA-C (endo vein harvest), Lissett Reynolds PA-C (endo radial harvest), and Son
Lyndsey, PGY-2 Cardiac Surgery Resident
Anesthesiology: George Antoine MD and Gabriele Jernigan CRNA
Scrub and Circulating RNs: Lidia White, RN, Lois Archibald, RENATA
Test Desk Operator: Noreen Rinaldi CCP
Anesthesia: GETA
EBL: per perfusion records
Products: none
CPB Time: 89 minutes
Aortic Cross Clamp Time: 78 minutes
Indication(s) for Procedures: This is a 58-year-old male whose had about a week of chest pain and discomfort. He was found to have an inferior ST elevation LA with a total occlusion of the proximal RCA. He also had significant multivessel disease
in the left circulation. Given his young age and disease pattern, he was offered surgical revascularization with multi arterial use. As he was very active at baseline, I plan to rigidly fixate his sternum so that he can go back to his regular
activity once he has recovered.
Conduit(s) Quality:
FERNANDES -excellent, skeletonized
Radial�excellent, normal caliber with no dissections
RSVG -excellent, although larger caliber but minimal varicosities, the distal end that was thickened was cut off
Target(s) Quality:
RCA/PDA -good sized target, mean flow approximately 50 cc a minute at a pressure 80 mmHg, flow probe assessment of the graft yielded a mean flow of 24 cc a minute with a pulse index of 4.7
OM -excellent, good sized target, mean flow 15 cc a minute with a pulse index of 5.3
Diagonal�decent sized target, mean flow approximately 7 cc a minute with a pulse index of 4.3
LAD -excellent sized target, mean flow 14.7 cc a minute with a pulse index of 3.6
Findings: His left ventricular ejection fraction preoperatively was abnormal at 40% with significant regional wall motion abnormalities pertaining to the inferior wall hypokinesis. Following surgery his EF looked more robust at 55% and the inferior
wall hypokinesis had improved significantly. The mitral valve had a mild to maybe moderate degree of insufficiency preoperatively that improved to mild degree postoperatively. The FERNANDES was harvested in a skeletonized fashion. Following bypass
grafting, test dose cardioplegia was given down each distal and confirmed patency and hemostasis. Each distal was probed both proximally and distally to confirm disease and patency, respectively. Flow probe assessment was performed on all grafts
and demonstrated acceptable flows with good pulsatility indices. At the end of the case he did not require any blood products, he did not require any inotropic support, he was in sinus rhythm without pacing requirement. CI was 2.4 post surgery and
did sag to 1.4 post chest closure, responsive to volume.
Description of Procedure: The patient was taken to the operating room. Their identity and procedure to be performed were verified and they were positioned supine on the operating table. Induction via general anesthesia with endotracheal intubation
was performed and central venous access and arterial monitoring were inserted. A preoperative transesophageal echocardiogram was performed to assess cardiac function and valvular function. The patient was then prepped and draped from chin to feet in
a sterile fashion. A preoperative time-out was performed with all members of the team present. A midline chest incision was performed along with median sternotomy. Simultaneous endoscopic access of the left radial and right lower extremity for
saphenous vein harvest was obtained along with administration of an initial 5,000 units of IV heparin. A RulTract sternal retractor was positioned to exposure the left internal mammary bed. The mammary was harvested and found to have good flow. A
bulldog clamp was applied to the distal end of the mammary after dividing it. It was wrapped in a papaverine soaked RayTec and replaced back into the left hemithorax. The RulTract was exchanged for a median sternal retractor. The innominate vein was
isolated. Full heparinization was given (a total of 65,000 units). We created a pericardial well. The aortic cannulation site was chosen where it was soft, pliable, and free of calcium. Cannulation was performed with an arterial cannula in the
ascending aorta and a triple-stage venous cannula through the right atrial appendage. The arterial cannula line had an appropriate bounce and correlating pressures with test dosing. Next, a root vent/antegrade cannula was inserted into the ascending
aorta. The ACT was confirmed to be over 400 and retrograde autologous priming was performed before commencing cardiopulmonary bypass. The pulmonary artery was away from the aorta to facilitate a clamp site. The aortic cross-clamp was
placed after decreasing the flow on the bypass and mean arterial pressure. A total of 1.2L initial dose of antegrade Del-Nido cardioplegia solution was given and planned for re-dosing every 75 minutes as necessary. There was rapid electro-mechanical
arrest of the heart at 300 cc of cardioplegia. The left ventricle was observed for distention on echocardiogram and manual palpation. Cold slush was placed into a sponge and topically on the RV while we systemically cooled to 34 degrees centigrade.
Left atrial appendage was verified to be free of any thrombus or debris preoperatively and clipped flush to the base postoperatively.
I positioned the heart to expose the distal right coronary at the posterior descending artery. A [place] blade was used to expose the coronary and perform the arteriotomy. Coronary Cervantes scissors were used to enlarge the incision. The saphenous vein
was trimmed and beveled to an appropriate size. The distal anastomosis was performed using 7-0 prolene in an end-to-side fashion. Antegrade cardioplegia was administered into the graft. Appropriate hemostasis and flow were confirmed. The graft was
measured for length to the aorta and cut. Next the heart was positioned and rotated medially and the left atrial appendage was clipped with a 35mm device flush to the base. A suitable site on the obtuse marginal was chosen. We dissected and
prepared the distal target in a similar fashion. An end-to-side anastomosis was created with a 7-0 prolene after beveling the radial artery. Antegrade cardioplegia was administered into the graft with the aid of an Angiocath. Appropriate hemostasis
and flow were confirmed. The graft was measured for length to the aorta and cut. Next a very high diagonal vessel was identified and prepared in a similar fashion. The vein was beveled accordingly and end-to-side anastomosis was created with 7-0
Prolene in a running fashion. Test dose of antegrade cardioplegia demonstrated good hemostasis and flow down this vein graft. The proximal end was then cut to length to fit the aorta. A suitable target on the mid/distal left anterior descending
was identified. We dissected and prepared the distal target in a similar fashion. We retrieved the FERNANDES from the chest and created a pericardial opening while being cognizant of the phrenic nerve to facilitate the course of the mammary. The distal
end of the mammary was prepped and beveled to size. We verified orientation and length of the BRITTNI and found brisk flow. An end-to-side anastomosis was created with a 7-0 prolene. We temporarily released the bulldog clamp on the mammary to inspect
flow. Perfusion to the LAD territory was visualized and hemostasis was confirmed. The bull clamp was replaced on the mammary. The heart was filled and the root was distended with antegrade cardioplegia to make final assessment of graft length and
orientation. We created 3 aortotomies using a #11 blade then a 3.6mm aortic punch. The proximal anastomoses were created in an end-to-side fashion using 6-0 prolene. At the the same time, we re-warmed to 36.5 degrees centigrade. The bulldog clamp
was removed from the mammary. Temporary bipolar ventricular pacing wires were placed on the base of the right ventricle. The patient was placed in a Trendelenburg position and flows on bypass were lowered. The aortic cross clamp was removed and
flows were slowly brought back up. A 30-gauge needle was used to de-air the vein grafts. All bypass grafts were inspected and were free from kinking or twisting. The distal and proximal anastomoses appeared hemostatic. Once transesophageal
echocardiography appeared satisfactory for de-airing, the flows were temporarily lowered for root vent removal. After verifying acceptable parameters, we initiated weaning from cardiopulmonary bypass. Once we were off cardiopulmonary bypass, the
venous cannula was clamped and removed. A test dose of protamine was administered and the patient was monitored for any adverse reaction before resuming protamine. Once half of the protamine dose was delivered, pump suckers were turned off and the
systolic blood pressure was lowered for aortic decannulation. The aortic cannula was removed and pursestrings were tied down. All cannulation sites were oversewn with a 4-0 prolene. The mammary bed was inspected and hemostasis was confirmed. Once
the mediastinum was hemostatic, 19Fr Yimi drain was placed in the left pleural cavity and two 24Fr Yimi drains were placed within the pericardium. The sternum was approximated with 4 #7 single and 3 #8 double stainless steel wires. Given
activity's, additional plates were applied to the sternotomy closure with 16 mm screws throughout. Fascia was approximated with #1 vicryl suture. The subcutaneous, dermis and epidermis were closed in layers in a running fashion. The skin wound was
cleansed and dressed.
All instrument, sponge, and needle counts were confirmed to be correct x 2 at the end of the operation. The patient was transferred to the cardiac intensive care unit in critical but stable condition.
I, Dr. Juan David Kearns, was present, scrubbed for, and performed all critical elements of this procedure.
Juan David Kearns MD, MS
Cardiothoracic Surgeon
[facility]
This operative dictation was created using the [employer] dictation system. Please excuse any grammatical, typographical, or 'sound alike' errors
--- NOTE | 2024-10-03 11:19 | CON.INTV ---
Consultation
Consultation Request
Date/Time Consultation Requested: 10/03/2024-11:30 AM
Date/Time Consultation Performed: 10/04/2019 5-12 noon
Requesting Provider: Cardiovascular surgery
Performing Provider: Dr. Younger
Reason for Consultation: postoperative ventilator/critical care management
Medical History
-
Chief Complaint: CAD
History of Present Illness:
58-year-old male with a history of familial hyperlipidemia, ischemic cardiomyopathy found to have complex CAD and underwent CABG-steel fixer consulted for ventilator/critical care management postoperatively 10/03/2024. The patient is sedated on the
ventilator and review of systems was unobtainable. Operative records, chest tube output, pressors, insulin drip,, ventilator settings were reviewed.
Past Medical History
Past Medical History: None (CAD. Familial hyperlipidemia.)
Social History
Tobacco: Non-smoker
Drug: None
Living: With Family
Occupational Exposures: No known asbestos exposure
Environmental Exposures: No known tuberculosis exposure
Family History
Family History: CAD
Allergies / Home Medications
Allergies
Allergy/AdvReac Type Severity Reaction Status Date / Time
No Known Allergies Allergy Verified 09/30/24 12:11
Home Medications
�Medication �Instructions �Recorded �Confirmed �Last Taken �Type
No Meds [No Current Medications] 09/30/24 09/30/24 Unknown History
Review of Systems
-
Unable to Obtain full review of systems at this time due to: Other (Per HPI)
Vitals / Labs / Diagnostic Testing
Vital Signs
Temp Pulse Resp BP Pulse Ox
99.9 F 82 23 127/75 97
10/03/24 05:00 10/03/24 06:30 10/03/24 06:30 10/03/24 05:56 10/03/24 05:00
Laboratory Results
10/03/24
04:29
APTT 73.6 H
Diagnostic Testing:
Physical Exam
-
Exam:
Well-nourished and well-developed in no apparent distress
HEENT-atraumatic, normocephalic, oral tracheal intubation
Heart-regular rate and rhythm-no murmurs, rubs or gallops
Chest-clear to auscultation, no wheezes, crackles, median sternotomy bandage is not removed
Abdomen soft nondistended
Extremities-no cyanosis, clubbing, edema and good peripheral pulses
Integument-intact, no rashes, lesions or ecchymosis
Neurologically not alert, not oriented, not moving any of his extremities sedated on a ventilator
Assessment
-
58-year-old male with a history of familial hyperlipidemia, ischemic cardiomyopathy found to have complex CAD and underwent CABG-steel fixer consulted for ventilator/critical care management postoperatively 10/03/2024.
Multivessel complex CAD/STEMI with reduced preoperative EF-40%
Status post CABG CAD x 4-FERNANDES-LAD, AO to radial to OM, AO to RSVG to high diagonal, AO to RSVG to RPDA-Dr. Kearns 10/03/2024
Mild leukocytosis
Mild hyperglycemia
Conditions present prior to admission:
CAD.
History of prostatitis
Familial hyperlipidemia.
Hypertension
Plan
Ventilator settings reviewed
FiO2 will be weaned
Minute ventilation will be adjusted
Arterial blood gases will be monitored
Spontaneous breathing trial will be attempted with hopeful extubation after anesthesia/sedation wear off
Pulmonary artery catheter parameters will be followed
Pressors/antihypertensive/inotropes/diuretics will be provided as needed
Monitor chest tube output
Monitor hemoglobin
Monitor platelet count and coags
Transfuse blood product if needed
CT surgery following chest tubes
Monitor blood sugar
Insulin drip per protocol
Aspiration precautions
VAP prevention protocol
DVT prophylaxis
Early nutrition
Early mobilization
Critical care statement: A total of 50 minutes of critical care time was provided for this patient today. This includes management of ventilator, spontaneous breathing trial, arterial blood gases, pressors, of unstable vital signs, evaluation of the
patient at bedside, reviewing the patient's pertinent medical records including radiographs, microbiology, laboratory evaluations, and discussion with primary team and critical care nursing.
Diagnostic data:
Chest x-ray 10/02/2024-NAD
CT chest 10/01/2024-severe coronary artery calcification, lungs with no abnormalities
Data Reviewed
-
EKG: Report reviewed by me
Radiology: Report reviewed by me
Medical Tests (Nuc Med, Echo etc): Report reviewed by me
Labs: Labs reviewed by me
Old Records: Reviewed
Critical Care Time (in minutes): 50
[2024-10-03 11:26] LABS: B.E. - POC -1.2 mmol/L; Glucose - POC 160 mg/dl (70-99); HCO3 - POC 24 mmol/L (21-28); Hematocrit - POC 35 % PCV (42-52); Hemodilution- POC Yes; Hemoglobin Calculated - POC 11.9; Ionized Calcium - POC 1.37 mmol/L (1.15-1.33); Lactate - POC 0.99 mmol/L (0.36-0.75); O2 Saturation %Calculated-POC 99.9 % (94-98); PCO2 - POC 39 mmHg (35-48); PO2 - POC 270 mmHg (83-108); Potassium - POC 4.7 mmol/L (3.5-5.1); Sodium - POC 136 mmol/L (136-145); Specimen Type - POC Arterial; pH - POC 7.39 (7.35-7.45)
[2024-10-03 11:50] LABS: Glucose - Point of Care 168 mg/dl (70-99)
--- NOTE | 2024-10-03 11:50 | W.PN.UPDATE ---
Update Note
Progress Note Update
IV fluids: 1200
U.O.:� 500
Blood:� none
Wires:� V-wires
Drips: Levo @ 6, Cardizem @ 5, Precedex @ 0.5, Insulin
�
NEURO: sedated , pupils +2mm B/L
RESP: #8OT @24cm> 500/60%/14/5. Lungs clear B/L. 2 mediastinal (0cc on arrival) and L pleural (10cc on arrival) chest tubes to -20cm suction. Sanguineous drainage
CV: RRR +S1, S2, no S3, no�rub, no murmur. Dermabond to median sternotomy. RIJ w/[place] locked @ 48cm. PA 30/16; CVP 12
ABD: round, soft, no BS
EXT: no edema, +2/4 DP pulses B/L, no femoral bruit, RLE and LUE FELIBERTO wrap intact; right radial A-line intact
: Cobb with clear yellow urine
�
A/P: POD #0 s/p CABG x 4 (FERNANDES to LAD, Ao to Radial to OM, SVG to high diagonal, SVG to RPDA), Left atrial appendage exclusion [#35 mm device]
DELORIS: EF�42% (pre), improved to 50-55% (post)
- wean and extubate
# CAD
- will require ASA, Plavix, statin, beta-benoit
- Amio for AF prophylaxis
- Cardizem to oral Norvasc for radial patency x 3 months
# acute surgical blood loss anemia-expected
- trend CBC
�
# Hx Left renal carcinoma s/p partial nephrectomy
- limit nephrotoxic drugs
[2024-10-03] MEDS: LR 250 ML IV ×3 (12:00→19:09)
--- NOTE | 2024-10-03 12:00 | PTCARENOTE ---
Received pt at 1140 from [facility]; pt intubated and sedated; Pupils 3mm and reactive; NSR on monitor and VSS; RIBenjamín Obrien floated to 48. Right A-line and PIV x2 all lines leveled and zeroed; Insulin, Precedex, Cardizem, and Levo, see flow sheet for
details; Epicardial V wire in place and tested in [facility]; + rub; Lungs diminished; CT x3 to -20 wall suction no air leak no air leak noted; ETT 8 23 at lip; SIMV 40%/500/14/5; hypoactive bowel sound; Cobb catheter draining clear yellow urine; weak
Right ulnar radial pulse and palpable B/L DP; no edema noted; all surgical sites C/D?I; see nursing documentation for further details.
CI 1.61
CO 3.50
SVR 1257
[2024-10-03 12:11] LABS: B.E. -3.7 mmol/L; HCO3 22.1 mmol/L (21-28); O2 Saturation % 98.8 % (94-98); PCO2 42 mmHg (35-48); PO2 100 mmHg (83-108); Potassium 4.6 mMOL/L (3.5-5.1); Sodium 134 mMOL/L (136-145)
[2024-10-03 12:13] LABS: Hematocrit 35.9 % (39.0-52.0); Hemoglobin 12.5 g/dL (13.0-18.0); Platelet Count 189 10^3/uL (130-400)
[2024-10-03 12:23] LABS: INR 1.30; PT 16.5 Sec (11.4-14.6)
[2024-10-03 12:24] LABS: APTT 34.5 Sec (23.4-35.0)
--- NOTE | 2024-10-03 12:27 | PTCARENOTE ---
Respiratory at bedside and pt placed on CPAP.
[2024-10-03 12:29] LABS: Blood Urea Nitrogen 17 mg/dl (9-20); Estimated Creatinine Clearance 98 ml/min; Glucose 177 mg/dl (70-99); Magnesium 2.7 mg/dl (1.6-2.3)
--- NOTE | 2024-10-03 12:45 | W.PN.CD ---
Addendum entered and electronically signed by Rudy Brown MD 10/03/24 16:08:
I saw and examined the patient.
Aleksandar Anderson note was reviewed and I agree with the note.
Comment: Wean inotropes as able, OOB when able, now extubated, he has no new complaints
Original Note:
Today's Communication / Plan
-
Monitor tele
Impression / Plan
-
58 yo male with PMH of familial hypercholesterolemia is admitted with ACS. Taken to cath emergently for inferior ST elevation. Cath findings (below) suggest more chronic disease, and benefit from surgical revascularization.
# CAD s/p Multi arterial coronary artery bypass grafting x 4 (In situ FERNANDES to LAD, Ao to Radial to OM, Ao to RSVG to high diagonal, Ao to RSVG to RPDA) by Dr. Kearns 10/03/2024
- Pre-op LVEF 40% -> post op 55% with improved mitral insufficiency
-Was in sinus rythm during operation and did not require pacing, inotropic support or blood products
-EKG Normal sinus rhythm with diffuse T wave inversion common post-op
-On cardizem 2.5, norepi 6, dexa 0.3 - wean per protocol
-Cont to monitor tele
# ICM, HFrEF
- inferior RWMA, EF 40-45 -> post op 55%
- metop valsartan on hold
- will titrate GDMT further post-revasc
# Familial hypercholesterolemia
-LDL 214, Lp (a) pending - goal <55
-has not been on meds for 10yrs
-back on statin: crestor 40mg daily
-may need PCSK9i as outpatient
CATH 09/30
CORONARY ANGIOGRAPHY
Dominance: Right
LM: Short vessel, no significant disease
LAD: Large vessel giving rise to a moderate caliber D1 and large branching D2. There is a 50 to 60% ostial LAD stenosis with significant pressure dampening on engagement with a 6 [place] guide. There is a serial smooth 40% stenosis just after D1.
Otherwise the vessel has diffuse mild disease.
LCx: Large vessel giving rise to a single large branching OM. There is a 95% ostial stenosis and otherwise mild disease.
RCA: Large vessel with a 100% thrombotic occlusion in the midportion. The RPDA fills via faint [id number] septal collaterals which appear to retrograde fill a likely large RPL system.
TTE 10/02
CONCLUSIONS
Left ventricular ejection fraction is 40-45%.
Basal to mid inferior, inferoseptal, and inferolateral hypokinesis.
Normal right ventricular size and function.
Physical Exam
Vital Signs/Labs
Vital Signs
Temp Pulse Resp BP Pulse Ox
97.8 F 72 14 127/75 98
10/03/24 11:55 10/03/24 11:50 10/03/24 11:52 10/03/24 05:56 10/03/24 12:31
10/02/24 10/03/24 10/04/24
06:59 06:59 06:59
Actual Weight 97.1 kg 96.7 kg
10/03/24 11:42
PT 16.5 Sec (11.4-14.6) H 10/03/24 11:42
INR 1.30 10/03/24 11:42
APTT 34.5 Sec (23.4-35.0) 10/03/24 11:42
Magnesium 2.7 mg/dl (1.6-2.3) H 10/03/24 11:42
Triglycerides 200 mg/dl (10-149) H 10/01/24 01:43
LDL Cholesterol, Calc 214 mg/dl 10/01/24 01:43
VLDL Cholesterol, Calc 40 mg/dl (0-30) H 10/01/24 01:43
HDL Cholesterol 46 mg/dl 10/01/24 01:43
LAB Results
09/30/24 09/30/24 09/30/24
14:30 15:04 15:57
Troponin I Cancelled Cancelled 1.540 H* D
10/01/24 10/01/24 10/01/24
01:43 01:43 08:51
Troponin I Cancelled 12.800 H* 18.300 H* D
10/01/24
15:53
Troponin I 16.200 H*
Physical Exam
Cardiovascular: Rhythm & rate is regular and Rub present
Respiratory: Other (Ventilated )
GI: Soft and Other (Pacer wires and chest tubes present )
Responding to stimuli. Smiled when told he did a good job post-op.
Data Reviewed
-
Date of Service: October 03, 2024
[2024-10-03 12:52] LABS: Glucose - Point of Care 141 mg/dl (70-99)
[2024-10-03] MEDS: NOVOLOG FLEXPEN SC ×3 (12:59→15:38)
[2024-10-03] MEDS: NEURONTIN PO ×2 (12:59→15:16)
[2024-10-03] MEDS: ANCEF 10 IV ×2 (12:59)
[2024-10-03] MEDS: NSS 500 IV (13:00)
[2024-10-03 13:15] LABS: B.E. - POC -1.4 mmol/L; Blood Urea Nitrogen - POC 18 mg/dl (3-120); Chloride - POC 106 mmol/L (96-111); Creatinine - POC 0.98 mg/dl (0.3-1.0); Glucose - POC 183 mg/dl (70-99); HCO3 - POC 24 mmol/L (21-28); Hematocrit - POC 40 % PCV (42-52); Hemodilution- POC No; Hemoglobin Calculated - POC 13.6; Ionized Calcium - POC 1.23 mmol/L (1.15-1.33); Lactate - POC 1.49 mmol/L (0.36-0.75); O2 Saturation %Calculated-POC 95.1 % (94-98); PCO2 - POC 44 mmHg (35-48); PO2 - POC 80 mmHg (83-108); Potassium - POC 4.7 mmol/L (3.5-5.1); Sodium - POC 141 mmol/L (136-145); Specimen Type - POC Venous; pH - POC 7.36 (7.35-7.45)
[2024-10-03 13:21] LABS: B.E. - POC 2.5 mmol/L; Glucose - POC 112 mg/dl (70-99); HCO3 - POC 27 mmol/L (21-28); Hematocrit - POC 35 % PCV (42-52); Hemodilution- POC Yes; Hemoglobin Calculated - POC 12.0; Ionized Calcium - POC 1.02 mmol/L (1.15-1.33); Lactate - POC < 0.30 mmol/L (0.36-0.75); O2 Saturation %Calculated-POC 99.9 % (94-98); PCO2 - POC 40 mmHg (35-48); PO2 - POC 337 mmHg (83-108); Potassium - POC 4.8 mmol/L (3.5-5.1); Sodium - POC 137 mmol/L (136-145); Specimen Type - POC Arterial; pH - POC 7.43 (7.35-7.45)
--- NOTE | 2024-10-03 13:25 | PTCARENOTE ---
EPOC ABG reviewed with CTNP; respiratory at bedside and pt extubated; 6L NC; family at bedside.
[2024-10-03] MEDS: OFIRMEV 100 IV (13:27)
[2024-10-03] MEDS: TYLENOL PO (13:28)
[2024-10-03] MEDS: LOW STRENGTH ASPIRIN PO (13:32)
[2024-10-03] MEDS: LOPRESSOR PO (13:32)
[2024-10-03] MEDS: DILAUDID 0.25 MG IV ×2 (13:37→21:11)
[2024-10-03 13:54] LABS: Glucose - Point of Care 137 mg/dl (70-99)
[2024-10-03 14:55] LABS: Glucose - Point of Care 141 mg/dl (70-99)
[2024-10-03] MEDS: LOW STRENGTH ASPIRIN 81 MG PO (15:16)
[2024-10-03] MEDS: PACERONE PO (15:17)
[2024-10-03 15:40] LABS: Hematocrit 34.1 % (39.0-52.0); Hemoglobin 11.8 g/dL (13.0-18.0); Platelet Count 205 10^3/uL (130-400)
[2024-10-03 16:00] LABS: Glucose - Point of Care 131 mg/dl (70-99)
[2024-10-03] MEDS: ROXICODONE 5 MG PO (16:06)
[2024-10-03] MEDS: ANCEF 5 IV (17:20)
[2024-10-03] MEDS: TORADOL 15 MG IV (17:20)
[2024-10-03 17:59] LABS: Glucose - Point of Care 113 mg/dl (70-99)
[2024-10-03] MEDS: CRESTOR 40 MG PO (18:01)
[2024-10-03 18:20] LABS: Lipoprotein a (Lp a) <6 mg/dL (<=29)
[2024-10-03] MEDS: LEVOPHED 250 IV (19:08)
--- NOTE | 2024-10-03 19:30 | PTCARENOTE ---
assumed care of pt from previous RN. pt drowsy, oriented x4, bedrest s/p [facility]. R IJ cordis w/ swan floated to 48cm. R radial a-line. all lines leveled, zeroed, flushed. ST on tele-monitor. temp epicardial v-wires, not plugged into pulse generator.
backup settings VVI 40/10/2. POX 98-100% on [address] x3 (mediastinal x2, L pleural) to -20cm wall suction, draining sanguineous drainage. abd s/n, hypoactive BS. tolerating sips of water w/ PO meds. martin catheter draining clear, sharda colored
urine. all surgical sites stable, CDI. PIV x2 intact. see worklist for complete nursing assesment, interventions, gtt titrations, VS, & I&Os.
[2024-10-03] MEDS: SENOKOT-S PO (19:45)
[2024-10-03 20:12] LABS: Glucose - Point of Care 87 mg/dl (70-99)
[2024-10-03] MEDS: NORVASC 2.5 MG PO (21:06)
[2024-10-03] MEDS: PACERONE 200 MG PO (21:07)
[2024-10-03] MEDS: NEURONTIN 100 MG PO (21:07)
[2024-10-03] MEDS: TYLENOL 1000 MG PO (21:07)
[2024-10-03 22:16] LABS: Glucose - Point of Care 117 mg/dl (70-99)
[2024-10-04] VITALS (29 sets, daily range): BP systolic 100–129; BP diastolic 65–80; PULSE 95; O2SAT 92–93; BMI 30.5
--- NOTE | 2024-10-04 | PTCARENOTE ---
assessment remains unchanged. ST on tele-monitor. POX 96-98% on [address] drainage WNL. U/O <0.5ml/kg/h. CT PA aware. see worklist for VS, I&Os, and gtt titrations.
[2024-10-04 00:07] LABS: Glucose - Point of Care 114 mg/dl (70-99)
[2024-10-04] MEDS: ANCEF 5 IV ×2 (00:13→08:24)
[2024-10-04] MEDS: ROXICODONE 5 MG PO ×4 (00:13→14:10)
[2024-10-04] MEDS: FLEXERIL 5 MG PO ×2 (00:13→08:22)
--- NOTE | 2024-10-04 01:21 | W.PN.CT ---
Today's Communication / Plan
-
-pod #2
-CI 2.82, CO 6.12, SVR 849. Drips: Insulin only. Levo is off
-CT outputs: 2 meds 70/140, L pleur 60/120 in 12/24 hrs
-Tmax 101.5 overnight- getting Tylenol prn. (Temp was 101.8 preop on 10/02- got iv Rocephin x1. Ur cx 10/02: no growth)
-low UO - maintain Cobb, monitor (hx partial L nephrectomy)
-got Norvasc last night 10/03 for radial graft, continue
-d/c swan and a-line
-current meds (ASA, Plavix, Crestor, Norvasc, Lopressor, Amio, Feosol, Protonix)
-encourage IS, OOB
Assessment / Plan
-
- Mv-CAD - s/p Multi arterial CABG x 4 (In situ FERNANDES to LAD, Ao to Radial to OM, Ao to RSVG to high diagonal, Ao to RSVG to RPDA); Left atrial appendage exclusion [35 mm device]; Rigid sternal fixation with 2 plates (16 mm screws throughout) by
Kearns on 10/03/24, pod #1
- Intraop DELORIS: LVEF preop was abnormal at 40% with significant regional wall motion abnormalities pertaining to the inferior wall hypokinesis. Following surgery, his EF looked more robust at 55% and the inferior wall hypokinesis had improved
significantly. The mitral valve had a mild to maybe moderate degree of insufficiency preoperatively that improved to mild degree postoperatively.
- Multivessel coronary artery disease
- STEMI, inferior wall with acute ischemic cardiomyopathy, LV EF of 40% with regional wall motion abnormality
- History of UTI and prostatitis
- Hyperlipidemia
- Hypertension
- L renal CA - s/p partial nephrectomy
- Acute postop blood loss anemia
- Acute postop atelectasis
- Acute postop hypovolemia with subsequent hypervolemia
Discussed patient care with: Nursing and Care Team
Subjective
-
Date of Service: October 04, 2024
Objective Data
-
PT 16.5 Sec (11.4-14.6) H 10/03/24 11:42
INR 1.30 10/03/24 11:42
APTT 34.5 Sec (23.4-35.0) 10/03/24 11:42
Vital Signs
Vital Signs
Temp Pulse Resp BP Pulse Ox
100.3 F 103 18 110/76 97
10/04/24 01:00 10/04/24 01:10 10/04/24 01:10 10/04/24 00:07 10/04/24 01:10
CT Intake/Output/Weight
10/03/24 10/03/24 10/04/24
06:59 18:59 06:59
Intake Total 234 / 1194 907.8 / 1456.6 548.8 / 1456.6
Output Total 505 / 790 285 / 790
Balance 234 / 894 402.8 / 666.6 263.8 / 666.6
SaO2: 97
Physical Exam
-
General: Awake and AOx3
Cardiovascular: Regular rate & rhythm and No Murmurs
Respiratory: Decreased Breath Sounds
Sternum: Stable
Incision: Clean, Dry and Intact
Extremities: No Edema
Abdomen: soft, nontender, nondistended, + decreased bowel sounds
Data Reviewed
-
Lab Results: Results Reviewed
Medications: Active Meds Reviewed
Chest X-Ray: Report Reviewed and Image Reviewed
ECG: Report Reviewed and Image Reviewed
[2024-10-04 02:13] LABS: Glucose - Point of Care 109 mg/dl (70-99)
[2024-10-04 02:32] LABS: Hematocrit 31.9 % (39.0-52.0); Hemoglobin 11.1 g/dL (13.0-18.0); Mean Corp Hgb Conc. 34.8 g/dL (33.0-37.0); Mean Corpuscular Volume 98.8 fL (80.0-94.0); Platelet Count 206 10^3/uL (130-400); Red Cell Dist. Width 13.0 % (11.5-14.5)
[2024-10-04 02:51] LABS: Blood Urea Nitrogen 24 mg/dl (9-20); Calcium 8.4 mg/dl (8.4-10.2); Carbon Dioxide 27 mmol/L (22-30); Chloride 108 mmol/L (98-107); Estimated Creatinine Clearance 98 ml/min; Glucose 110 mg/dl (70-99); Magnesium 2.4 mg/dl (1.6-2.3); Potassium 4.6 mmol/L (3.5-5.1); Sodium 137 mmol/L (135-145); eGFR > 60.00
[2024-10-04] MEDS: TYLENOL 650 MG PO (03:03)
[2024-10-04 04:00] LABS: Glucose - Point of Care 110 mg/dl (70-99)
--- NOTE | 2024-10-04 04:30 | PTCARENOTE ---
no acute changes. VSS. AM labs collected and sent. EKG completed. CT drainage WNL. U/O <0.5ml/kg/h. CT PA aware. swan and a-line d/c'd per CT PA orders. AM plan of care discussed w/ pt, pt in agreement.
[2024-10-04] MEDS: TYLENOL 1000 MG PO ×3 (06:10→20:09)
[2024-10-04 06:13] LABS: Glucose - Point of Care 96 mg/dl (70-99)
--- NOTE | 2024-10-04 07:36 | W.PN.INTV ---
Today's Communication / Plan
Recommendations
tolerated extubation
Wean FiO2
Monitor chest tube output
Wean insulin drip off
Likely transfer to telemetry-manager revenue will sign off-call pulmonary if respiratory issues arise
Assessment
-
58-year-old male with a history of familial hyperlipidemia, ischemic cardiomyopathy found to have complex CAD and underwent CABG-manager revenue consulted for ventilator/critical care management postoperatively 10/03/2024.
Multivessel complex CAD/STEMI with reduced preoperative EF-40%
Status post CABG CAD x 4-FERNANDES-LAD, AO to radial to OM, AO to RSVG to high diagonal, AO to RSVG to RPDA-Dr. Kearns 10/03/2024
Mild leukocytosis
Mild hyperglycemia
Conditions present prior to admission:
CAD.
History of prostatitis
Familial hyperlipidemia.
Hypertension
Plan
Tolerated extubation
Wean FiO2
Encourage incentive spirometry
Increase activity
Aspiration precautions
Pressors have been weaned
Continue to monitor chest tube output
Follow hemoglobin
Continue to follow platelet count and coags
Transfuse blood product as needed
CT surgery following chest tubes as well
Follow blood sugar
Insulin supplementation continues as needed
Early nutrition
Early mobilization
DVT prophylaxis
Reviewed with at the bedside
Patient will likely be discontinued off insulin drip and be transferred to telemetry phase-call pulmonary if respiratory issues arise
Reviewed the patient's pertinent medical records including radiographs, microbiology, laboratory evaluations, and discussion with primary team, and critical care nursing.
Diagnostic data:
Chest x-ray 10/02/2024-NAD
CT chest 10/01/2024-severe coronary artery calcification, lungs with no abnormalities
Subjective Dataa
Subjective Data
Date of Service:
Date of Service: October 04, 2024
Chief Complaint: Fire Hazard Inspector Follow Up, Pulmonary Follow Up and Vent Management Follow Up
Subjective:
tolerated extubation, some chest tube related pain, minimal shortness of breath, no abdominal pain
Review of Systems
General: Other ( Per HPI)
Objective Data
Data Reviewed
Vital Signs / I&O / Oxygen:
Vital Signs
Temp Pulse Resp BP Pulse Ox
100.9 F H 100 18 116/74 95
10/04/24 07:00 10/04/24 07:00 10/04/24 07:00 10/04/24 06:22 10/04/24 07:00
Intake and Output
10/03/24 10/04/24 10/05/24
06:59 06:59 06:59
Intake Total 1194 / 1194 1621.1 / 1621.1
Output Total 300 / 300 965 / 965
Balance 894 / 894 656.1 / 656.1
SaO2 [CPAP] 98
SaO2 [SIMV] 100
SaO2 95
Nasal Cannula flow liters per 2
minute
Physical Exam
General: Respiratory Distress (n) and Comfortable
HEENT: Normocephalic, Anicteric and Moist Mucous Membranes
Cardiovascular: Regular Rhythm
Respiratory: Wheeze (n), Crackles ( rare basilar), Non-Labored Respirations, Accessory Resp Muscle Use (n) and Chest Tube
GI: Soft, Non Distended and Non Tender
Neurology: Awake, Alert and No Motor Deficits
Skin: Warm, Good Color, Cyanosis (n) and Jaundice (n)
Labs/Micro/Reports
Lab Data
10/04/24 02:10
10/04/24 02:10
Laboratory Results
10/03/24
11:42
PT 16.5 H
INR 1.30
APTT 34.5
pH 7.33 L
pCO2 42
pO2 100
HCO3 22.1
O2 Delivery Level
Microbiology
10/02/24 15:57 Urine Urine Culture - Final
NO GROWTH
--- NOTE | 2024-10-04 07:39 | W.PN.ANS.POP ---
Anesthesia Post Operative
- Anesthesia Post Op Note
Vital Signs Stable-See Nursing Note: Yes
Airway Patent: Yes
Adequate Pain Control: Yes
Change in Mental Status: No
Current Postoperative Nausea & Vomiting: No
Anesthesia Complications: No
General Anesthetic Recall: No
Unplanned Admission: No
Post Op Hydration Adequate: Yes
[2024-10-04] MEDS: NEURONTIN 100 MG PO ×3 (08:22→22:30)
[2024-10-04] MEDS: PLAVIX 75 MG PO (08:22)
[2024-10-04] MEDS: LOW STRENGTH ASPIRIN 81 MG PO (08:22)
[2024-10-04] MEDS: FEOSOL 325 MG PO (08:22)
[2024-10-04] MEDS: VITAMIN C 500 MG PO (08:22)
[2024-10-04] MEDS: NORVASC 2.5 MG PO (08:22)
[2024-10-04] MEDS: PACERONE 200 MG PO ×3 (08:22→22:29)
[2024-10-04] MEDS: SENOKOT-S 1 TABLET PO ×2 (08:23→20:09)
[2024-10-04] MEDS: MAGNESIUM OXIDE 500 MG PO ×2 (08:23→20:09)
[2024-10-04] MEDS: PROTONIX 40 MG PO (08:23)
[2024-10-04] MEDS: LIDOCAINE 4% PATCH 1 PATCH TOPICAL (08:23)
[2024-10-04] MEDS: BACTROBAN 2% OINTMENT 1 APPLIC NASAL ×2 (08:23→20:10)
[2024-10-04] MEDS: LOPRESSOR 12.5 MG PO ×2 (08:23→20:09)
--- NOTE | 2024-10-04 08:42 | W.PN.CD ---
Today's Communication / Plan
-
Febrile overnight monitor
ISB and OOB ambulate as able
Impression / Plan
-
58 yo male with PMH of familial hypercholesterolemia is admitted with ACS. Taken to cath emergently for inferior ST elevation. Cath findings (below) suggest more chronic disease, and benefit from surgical revascularization.
# CAD s/p Multi arterial coronary artery bypass grafting x 4 (In situ FERNANDES to LAD, Ao to Radial to OM, Ao to RSVG to high diagonal, Ao to RSVG to RPDA) by Dr. Kearns 10/03/2024
- Pre-op LVEF 40% -> post op 55% with improved mitral insufficiency
-Was in sinus rythm during operation and did not require pacing, inotropic support or blood products
-EKG Normal sinus rhythm with diffuse T wave inversion common post-op
-Off drips
-Cont to monitor tele
# ICM, HFrEF
- inferior RWMA, EF 40-45 -> post op 55%
- metop valsartan on hold
- will titrate GDMT as BP allows
- will need a salvager helper
# Familial hypercholesterolemia
-LDL 214, Lp (a) pending - goal <55
-has not been on meds for 10yrs
-back on statin: crestor 40mg daily
-may need PCSK9i as outpatient
Febrile overnight
- monitor
- received Rocephin prior to OR
CATH 09/30
CORONARY ANGIOGRAPHY
Dominance: Right
LM: Short vessel, no significant disease
LAD: Large vessel giving rise to a moderate caliber D1 and large branching D2. There is a 50 to 60% ostial LAD stenosis with significant pressure dampening on engagement with a 6 Polish guide. There is a serial smooth 40% stenosis just after D1.
Otherwise the vessel has diffuse mild disease.
LCx: Large vessel giving rise to a single large branching OM. There is a 95% ostial stenosis and otherwise mild disease.
RCA: Large vessel with a 100% thrombotic occlusion in the midportion. The RPDA fills via faint [id number] septal collaterals which appear to retrograde fill a likely large RPL system.
TTE 10/02
CONCLUSIONS
Left ventricular ejection fraction is 40-45%.
Basal to mid inferior, inferoseptal, and inferolateral hypokinesis.
Normal right ventricular size and function.
Physical Exam
Vital Signs/Labs
Vital Signs
Temp Pulse Resp BP Pulse Ox
100.3 F 97 16 116/74 96
10/04/24 08:00 10/04/24 08:00 10/04/24 08:00 10/04/24 06:22 10/04/24 08:00
10/03/24 10/04/24 10/05/24
06:59 06:59 06:59
Actual Weight 213 lb 2.992 oz 218 lb 14.704 oz
10/04/24 02:10
10/04/24 02:10
PT 16.5 Sec (11.4-14.6) H 10/03/24 11:42
INR 1.30 10/03/24 11:42
APTT 34.5 Sec (23.4-35.0) 10/03/24 11:42
Magnesium 2.4 mg/dl (1.6-2.3) H 10/04/24 02:10
Triglycerides 200 mg/dl (10-149) H 10/01/24 01:43
LDL Cholesterol, Calc 214 mg/dl 10/01/24 01:43
VLDL Cholesterol, Calc 40 mg/dl (0-30) H 10/01/24 01:43
HDL Cholesterol 46 mg/dl 10/01/24 01:43
LAB Results
10/01/24 10/01/24
08:51 15:53
Troponin I 18.300 H* D 16.200 H*
Physical Exam
Constitutional: No acute distress and Comfortable
EENT: Anicteric
Cardiovascular: Rhythm & rate is regular and Pedal edema is absent
Respiratory: Other (poos inspiratory effort)
GI: Soft
Neuro/Psych: AO x 3
Data Reviewed
-
Date of Service: October 04, 2024
EKG: Tracing Personally Visualized and interpreted (sr)
Echo: Report Reviewed by me
Labs: Labs Reviewed by me
[2024-10-04 08:44] LABS: Glucose - Point of Care 108 mg/dl (70-99)
--- NOTE | 2024-10-04 08:45 | PTCARENOTE ---
Assumed care of patient at 0700. Pt is awake, alert, and oriented. Pt with complaints of pain, PRN Roxicodone and Flexeril administered for relief. Pt remains SR/ST HR 90's-106. BP 104/71 MAP 80. Pulse 96% on 2L nasal cannula. Mediastinal chest
tubes x2 and left pleural chest tube in place, no sign or air leak or crepitus, drainage serosanguineous. Pt tolerating clear liquid diet. Cobb catheter d/c'd per order, previously draining sharda urine. Midsternal incision approximated and BOOKMAKER MAP.
Right leg incision with yoselyn wrap overlay in place. Right groin puncture intact. Left radial incision with yoselyn wrap in place. Right IJ cordis in place with KVO. Pt remains on insulin gtt per glycemic protocol.
[2024-10-04] MEDS: NOVOLOG FLEXPEN 4 UNITS SC (08:58)
[2024-10-04] MEDS: NSS IV (10:22)
[2024-10-04 10:58] LABS: Glucose - Point of Care 123 mg/dl (70-99)
--- NOTE | 2024-10-04 11:30 | W.PN.UPDATE ---
Update Note
Progress Note Update
No pacing required overnight. On bipolar ventricular lead was removed without difficulty. Bedrest x 1 hour vital signs every 15 minutes x 4 per protocol.
--- NOTE | 2024-10-04 11:48 | CM ---
Reviewed chart. Met with and Mrs. Pike to review discharge plans. He states he is feeling okay. He states prior to admission he resides with his spouse in a three story home with two steps to enter. He states he has a full flight of steps to
get to his bedroom. He states he has a full bathroom on each level. He states prior to admission he was independent with ambulation and adls. He does not have any DME in the home. He states he has a prescription plan. Medical work-up in progress.
The discharge plan is to return home with his spouse and a home visit by the Transitional Care Nurse when medically stable.
--- NOTE | 2024-10-04 12:45 | PTCARENOTE ---
Pleural chest tube d/c'd. V wire pulled by CT ALEJANDRA, [place]. BP monitored, currently 116/78 MAP 87. Remains SR with HR 103. Pulse oximetry 96% on 2L nasal cannula. Pulse oximetry 88% on room air. Continued use of IS encouraged.
[2024-10-04 13:38] LABS: Glucose - Point of Care 93 mg/dl (70-99)
--- NOTE | 2024-10-04 14:02 | PTCARENOTE ---
Mediastinal chest tubes d/c'd without issue. Insulin gtt d/c'd. Pt assisted OOB to chair without issue.
[2024-10-04] MEDS: NOVOLOG FLEXPEN SC (14:03)
[2024-10-04] MEDS: FERRLECIT 110 MG IV (14:10)
[2024-10-04] MEDS: CRESTOR 40 MG PO (17:04)
--- NOTE | 2024-10-04 17:15 | PTCARENOTE ---
assisted pt w ambulating in hallway, tolerated. VSS, denies pain.
--- NOTE | 2024-10-04 20:00 | PTCARENOTE ---
Assumed care of patient at 1900. Patient found oob in chair at time of assessment. Patient is AOx4, follows commands appropriately, moves all extremities. Lung sounds have fine crackles present in the bases, saO2 on RA 88% patient placed on 2L
improved to 94%. IS at 1000. Heart sounds are audible, patient is ST/SR on the monitor. Patient has normal palpable R radial and weak but palpable L ulnar. Dorsalis pedis pulses normal and palpable. Patient has trace L hand edema. Patient has active
BS in all four quadrants. They are DTV. There is a sternal incision approx with surg adhesive SO, L radial incision approx with surg adhesive SO, R groin puncture approx with surg adhesive CYTOPATHOLOGIST, and RLE incision approx with surg adhesive SO.
Patient febrile given 1000 mg tylenol. All other VSS. Call retana within reach.
[2024-10-04] MEDS: REMOVE LIDOCAINE PATCH 1 PATCH REMOVE (20:11)
[2024-10-05] VITALS (12 sets, daily range): BP systolic 94–137; BP diastolic 54–82; PULSE 92; O2SAT 91–93; BMI 30.8
--- NOTE | 2024-10-05 | PTCARENOTE ---
Patient reassessed. Remains SR on the monitor. Patient c/o SOB while attempting to sleep. Denies pain. O2 increased to 4L for night. Call retana within reach.
[2024-10-05] MEDS: ROXICODONE 5 MG PO (01:58)
[2024-10-05 04:48] LABS: Hematocrit 23.2 % (39.0-52.0); Hemoglobin 7.8 g/dL (13.0-18.0); Mean Corp Hgb Conc. 33.6 g/dL (33.0-37.0); Mean Corpuscular Volume 97.9 fL (80.0-94.0); Platelet Count 231 10^3/uL (130-400); Red Cell Dist. Width 13.2 % (11.5-14.5)
[2024-10-05 05:03] LABS: Blood Urea Nitrogen 27 mg/dl (9-20); Calcium 8.5 mg/dl (8.4-10.2); Carbon Dioxide 25 mmol/L (22-30); Chloride 102 mmol/L (98-107); Estimated Creatinine Clearance 110 ml/min; Glucose 140 mg/dl (70-99); Magnesium 2.3 mg/dl (1.6-2.3); Potassium 4.7 mmol/L (3.5-5.1); Sodium 133 mmol/L (135-145); eGFR > 60.00
--- NOTE | 2024-10-05 05:29 | W.PN.CT ---
Today's Communication / Plan
-
-pod #2
-no significant issues, continues to have elevated temps. Tm 101.4. No urinary sxs- monitoring off abx
-using IS regularly. Will start acapella and Mucinex
-Hg 7.8 today (from 11.1). BP ok 110s-120s. ? dilutional
-pOx 88% on RA and 97% on 2L - wean off O2 as tolerated
-tachy low 100s - increased Lopressor 25 bid
-current meds (ASA, Plavix, Crestor, Norvasc, Lopressor, Amio, Feosol, Protonix)
-encourage IS, OOB
Assessment / Plan
-
- Mv-CAD - s/p Multi arterial CABG x 4 (In situ FERNANDES to LAD, Ao to Radial to OM, Ao to RSVG to high diagonal, Ao to RSVG to RPDA); Left atrial appendage exclusion [35 mm device]; Rigid sternal fixation with 2 plates (16 mm screws throughout) by
Kearns on 10/03/24, pod #2
- Intraop DELORIS: LVEF preop was abnormal at 40% with significant regional wall motion abnormalities pertaining to the inferior wall hypokinesis. Following surgery, his EF looked more robust at 55% and the inferior wall hypokinesis had improved
significantly. The mitral valve had a mild to maybe moderate degree of insufficiency preoperatively that improved to mild degree postoperatively.
- Multivessel coronary artery disease
- STEMI, inferior wall with acute ischemic cardiomyopathy, LV EF of 40% with regional wall motion abnormality
- History of UTI and prostatitis
- Hyperlipidemia
- Hypertension
- L renal CA - s/p partial nephrectomy
- Elevated temp
- Acute postop blood loss anemia
- Acute postop atelectasis
- Acute postop hypovolemia with subsequent hypervolemia
Discussed patient care with: Nursing and Care Team
Subjective
-
Date of Service: October 05, 2024
Objective Data
-
Lab Results
10/05/24 04:11
10/05/24 04:11
PT 16.5 Sec (11.4-14.6) H 10/03/24 11:42
INR 1.30 10/03/24 11:42
APTT 34.5 Sec (23.4-35.0) 10/03/24 11:42
Vital Signs
Vital Signs
Temp Pulse Resp BP Pulse Ox
101.4 F H 97 20 123/72 97
10/04/24 19:00 10/04/24 23:00 10/04/24 19:00 10/04/24 22:34 10/04/24 23:00
CT Intake/Output/Weight
10/04/24 10/04/24 10/05/24
06:59 18:59 06:59
Intake Total 713.3 / 1631.9 94.6 / 134.6 40 / 134.6
Output Total 460 / 995 85 / 385 300 / 385
Balance 253.3 / 636.9 9.6 / -250.4 -260 / -250.4
SaO2: 97
Physical Exam
-
General: Awake and AOx3
Cardiovascular: Regular rate & rhythm, No Murmurs and No Rub
Respiratory: Decreased Breath Sounds
Sternum: Stable
Incision: Clean, Dry and Intact
Extremities: No Edema (2+ DPs b/l)
Abdomen: mildly distended, +decreased bowel sounds, nontender, denies nausea
Data Reviewed
-
Lab Results: Results Reviewed
Medications: Active Meds Reviewed
Chest X-Ray: Report Reviewed and Image Reviewed
ECG: Report Reviewed and Image Reviewed
--- NOTE | 2024-10-05 05:30 | PTCARENOTE ---
Patient reassessed. Remains SR on the monitor. Given aida 5x1 for pain/discomfort of sternum. Patient was sleeping on reassessment. AM hygiene care provided. Am labs obtained. Patient oob to chair.
[2024-10-05] MEDS: TYLENOL 1000 MG PO ×3 (05:54→21:59)
--- NOTE | 2024-10-05 07:41 | W.PN.INTV ---
Today's Communication / Plan
Recommendations
increase activity
Wean FiO2
Chest tubes discontinued
Off insulin drip
Hvac R Tech will sign off-call pulmonary if respiratory issues arise
Assessment
-
58-year-old male with a history of familial hyperlipidemia, ischemic cardiomyopathy found to have complex CAD and underwent CABG-clinical molecular geneticist consulted for ventilator/critical care management postoperatively 10/03/2024.
Multivessel complex CAD/STEMI with reduced preoperative EF-40%
Status post CABG CAD x 4-FERNANDES-LAD, AO to radial to OM, AO to RSVG to high diagonal, AO to RSVG to RPDA-Dr. Kearns 10/03/2024
Mild leukocytosis
Mild hyperglycemia
Conditions present prior to admission:
CAD.
History of prostatitis
Familial hyperlipidemia.
Hypertension
Plan
Hemodynamically stable, respiratory status stable
Tolerated extubation
Wean FiO2
Encourage incentive spirometry
Increase activity
Aspiration precautions
Pressors off
Chest tubes removed
Continue to follow platelet count and coags
Follow blood sugar
Insulin supplementation continues as needed-insulin drip discontinued
Early nutrition
Early mobilization
DVT prophylaxis
Reviewed with at the bedside
Patient discontinued off insulin drip and be transferred to telemetry phase-call pulmonary if respiratory issues arise
Reviewed the patient's pertinent medical records including radiographs, microbiology, laboratory evaluations, and discussion with primary team, and critical care nursing.
Diagnostic data:
Chest x-ray 10/02/2024-NAD
CT chest 10/01/2024-severe coronary artery calcification, lungs with no abnormalities
Subjective Dataa
Subjective Data
Date of Service:
Date of Service: October 05, 2024
Chief Complaint: Hvac R Tech Follow Up, Pulmonary Follow Up and Vent Management Follow Up
Subjective:
Feels improved with chest tube removal, no chest pain, shortness of breath at rest, abdominal pain or increased leg swelling.
Review of Systems
General: Other ( Per HPI)
Objective Data
Data Reviewed
Vital Signs / I&O / Oxygen:
Vital Signs
Temp Pulse Resp BP Pulse Ox
100.6 F H 102 20 121/82 98
10/05/24 03:00 10/05/24 07:00 10/05/24 03:00 10/05/24 04:14 10/05/24 06:00
Intake and Output
10/04/24 10/05/24 10/06/24
06:59 06:59 06:59
Intake Total 1621.1 / 1631.9 214.6 / 214.6
Output Total 965 / 995 735 / 735
Balance 656.1 / 636.9 -520.4 / -520.4
SaO2 [CPAP] 98
SaO2 [SIMV] 100
SaO2 98
Nasal Cannula flow liters per 4
minute
Physical Exam
General: Respiratory Distress (n) and Comfortable
HEENT: Normocephalic, Anicteric and Moist Mucous Membranes
Cardiovascular: Regular Rhythm
Respiratory: Wheeze (n), Crackles ( rare basilar), Non-Labored Respirations and Accessory Resp Muscle Use (n)
GI: Soft, Non Distended and Non Tender
Neurology: Awake, Alert and No Motor Deficits
Skin: Warm, Good Color, Cyanosis (n) and Jaundice (n)
Labs/Micro/Reports
Lab Data
10/05/24 04:11
10/05/24 04:11
Microbiology
10/02/24 15:57 Urine Urine Culture - Final
NO GROWTH
--- NOTE | 2024-10-05 07:45 | PTCARENOTE ---
Assumed care of patient. Walking rounds completed with previous RN. Pt assessed while he was sitting in the chair. Pt alert and oriented x4. Denies pain, shortness of breath, and nausea. CREWS with equal strength throughout. SR-ST on tele with rates
in the 90s-100s. BP 132/72. Right radial, left ulnar and Bilateral DP pulses palpable. Trace edema to left hand. POX 90% on RA. Lungs diminished with fine crackles in the bases. IS encouraged-1000mL achieved. Acapella encouraged. Occasional
productive cough as per patient. Abdomen soft, round, nontender. +BS +gas as per patient. Tolerating diet. Due to void for this RN. Sternal incision approximated with skin glue, TAG METER OPERATOR. Old chest tube sites covered, dressing CDI. Right groin puncture
approximated, TAG METER OPERATOR. Right SVG harvest site approximated, SO. Left radial harvest site approximated, TAG METER OPERATOR. Right IJ cordis intact. PIV x2 intact. See worklist for complete nursing assessment. Plan of care reviewed and patient in agreement.
[2024-10-05] MEDS: LIDOCAINE 4% PATCH 1 PATCH TOPICAL (07:57)
[2024-10-05] MEDS: PROTONIX 40 MG PO (07:57)
[2024-10-05] MEDS: FEOSOL 325 MG PO (07:57)
[2024-10-05] MEDS: NSS 500 IV (07:58)
[2024-10-05] MEDS: LOPRESSOR 25 MG PO (07:58)
[2024-10-05] MEDS: MAGNESIUM OXIDE 500 MG PO ×2 (07:58→19:36)
[2024-10-05] MEDS: SENOKOT-S 1 TABLET PO ×2 (07:58→19:35)
[2024-10-05] MEDS: LASIX 40 MG IV (07:58)
[2024-10-05] MEDS: NEURONTIN 100 MG PO ×3 (07:58→21:59)
[2024-10-05] MEDS: MUCINEX 600 MG PO ×2 (07:58→19:36)
[2024-10-05] MEDS: PLAVIX 75 MG PO (07:58)
[2024-10-05] MEDS: LOW STRENGTH ASPIRIN 81 MG PO (07:58)
[2024-10-05] MEDS: PACERONE 200 MG PO ×3 (07:58→21:59)
[2024-10-05] MEDS: BACTROBAN 2% OINTMENT 1 APPLIC NASAL ×2 (07:59→19:35)
[2024-10-05] MEDS: NORVASC 2.5 MG PO (07:59)
[2024-10-05] MEDS: VITAMIN C 500 MG PO (07:59)
--- NOTE | 2024-10-05 07:59 | W.PN.CD ---
Today's Communication / Plan
-
continue current medications
add diff to cbc
monitor fever curve
Impression / Plan
-
58 yo male with PMH of familial hypercholesterolemia is admitted with ACS. Taken to cath emergently for inferior ST elevation. Cath findings (below) suggest more chronic disease, and benefit from surgical revascularization.
# CAD s/p Multi arterial coronary artery bypass grafting x 4 (In situ FERNANDES to LAD, Ao to Radial to OM, Ao to RSVG to high diagonal, Ao to RSVG to RPDA) by Dr. Kearns 10/03/2024
- Pre-op LVEF 40% -> post op 55% with improved mitral insufficiency
-Was in sinus rythm during operation and did not require pacing, inotropic support or blood products
-EKG Normal sinus rhythm with diffuse T wave inversion common post-op
-Off drips
-Cont to monitor tele
# ICM, HFrEF
- inferior RWMA, EF 40-45 -> post op 55%
- metoprolol resumed change to succinate on dishcarge. Valsartan on hold
- will titrate GDMT as BP allows
- will need an op welding systems and equipment repairer
# Familial hypercholesterolemia
-LDL 214, Lp (a) pending - goal <55
-has not been on meds for 10yrs
-back on statin: crestor 40mg daily
-may need PCSK9i as outpatient
Febrile overnight
-Tmax 101.4, cxr without pna, ucx negative, ?atelectasis
-no localizing compliant
- monitor
- received Rocephin prior to OR
Subjective:
he is feeling well, up and oob without issue
at the bedside and added to the history
CATH 09/30
CORONARY ANGIOGRAPHY
Dominance: Right
LM: Short vessel, no significant disease
LAD: Large vessel giving rise to a moderate caliber D1 and large branching D2. There is a 50 to 60% ostial LAD stenosis with significant pressure dampening on engagement with a 6 [place] guide. There is a serial smooth 40% stenosis just after D1.
Otherwise the vessel has diffuse mild disease.
LCx: Large vessel giving rise to a single large branching OM. There is a 95% ostial stenosis and otherwise mild disease.
RCA: Large vessel with a 100% thrombotic occlusion in the midportion. The RPDA fills via faint [id number] septal collaterals which appear to retrograde fill a likely large RPL system.
TTE 10/02
CONCLUSIONS
Left ventricular ejection fraction is 40-45%.
Basal to mid inferior, inferoseptal, and inferolateral hypokinesis.
Normal right ventricular size and function.
Physical Exam
Vital Signs/Labs
Vital Signs
Temp Pulse Resp BP Pulse Ox
100.6 F H 102 20 121/82 98
10/05/24 03:00 10/05/24 07:00 10/05/24 03:00 10/05/24 04:14 10/05/24 06:00
10/04/24 10/05/24 10/06/24
06:59 06:59 06:59
Actual Weight 218 lb 14.704 oz 220 lb 10.923 oz
10/05/24 04:11
PT 16.5 Sec (11.4-14.6) H 10/03/24 11:42
INR 1.30 10/03/24 11:42
APTT 34.5 Sec (23.4-35.0) 10/03/24 11:42
Magnesium 2.3 mg/dl (1.6-2.3) 10/05/24 04:11
Triglycerides 200 mg/dl (10-149) H 10/01/24 01:43
LDL Cholesterol, Calc 214 mg/dl 10/01/24 01:43
VLDL Cholesterol, Calc 40 mg/dl (0-30) H 10/01/24 01:43
HDL Cholesterol 46 mg/dl 10/01/24 01:43
Physical Exam
Constitutional: No acute distress
Cardiovascular: Rhythm & rate is regular, Pedal edema is absent, JVD pressure is normal and Systolic murmur absent
Respiratory: Respiratory effort normal, Lungs clear to auscul., Wheeze Absent, Crackles Absent and Rhonchi Absent
Neuro/Psych: AO x 3
Data Reviewed
-
Date of Service: October 05, 2024
Medical Decision Making: Test Interpretation and Review of Case with other Provider (spoke to jesse mi )
EKG: Other (tele sinus/sinus tachycardia)
[2024-10-05 08:26] LABS: Hematocrit 28.9 % (39.0-52.0); Hemoglobin 10.0 g/dL (13.0-18.0); Mean Corp Hgb Conc. 34.6 g/dL (33.0-37.0); Mean Corpuscular Volume 97.6 fL (80.0-94.0); Platelet Count 217 10^3/uL (130-400); Red Cell Dist. Width 13.1 % (11.5-14.5)
[2024-10-05 09:14] LABS: Nucleated Red Blood Cells % 0 % (-)
--- NOTE | 2024-10-05 12:00 | PTCARENOTE ---
Pt reassessed. ST with rates in the 100s. BP 110/70. POX 92% on RA. Surgical sites stable. No acute changes.
[2024-10-05] MEDS: FERRLECIT 110 MG IV (14:52)
--- NOTE | 2024-10-05 15:20 | PTCARENOTE ---
Pt reassessed. ST with rates in the 100s. BP 113/73. POX 94% on RA. Surgical sites stable. Old chest tube dressing changed. Pt ambulated in the arm[facility] 200', tolerated.
--- NOTE | 2024-10-05 15:27 | CM ---
Reviewed chart. Met with and Mrs. Pike to review discharge plans. He states he is feeling well and maybe able to go home soon. He ambulated 250 feet in the hallway today. We reviewed a home visit by the Transitional Care Nurse. He is
agreeable to a home visit. Prior to admission he resides with his spouse in a threes story home with two steps to enter. He has a full flight of steps to get to bedroom. He has a full bathroom on each level. Prior to admission he was independent
with ambulation and adls. He does not have any DME in the home. He has a prescription plan. His spouse states she will be home to assist in his care if needed. Medical work-up in progress. The discharge plan is to return home with his spouse and
a home visit by the Transitional Care Nurse when medically stable.
[2024-10-05] MEDS: CRESTOR 40 MG PO (17:02)
[2024-10-05] MEDS: LOPRESSOR 50 MG PO (19:36)
[2024-10-05] MEDS: REMOVE LIDOCAINE PATCH 1 PATCH REMOVE (19:41)
--- NOTE | 2024-10-05 21:24 | PTCARENOTE ---
assumed care of patient at 1900. Patietn alert and oriented, Follows all commands. moves all extremities some slight numbness notied in left hand on radial side. In Sinus rhythm to sinus tach, BP stable. Lopressor dose given as ordered. Pulse
all normal, trace edema in lower extremities. All surgical sites clean dry and intact. Lungs clear bilaterally, IS 1000. OOB to void. Voiding without issue. Bowel sounds present. See assessment for more details.
[2024-10-06] VITALS (7 sets, daily range): BP systolic 104–129; BP diastolic 69–79; BMI 30.4
--- NOTE | 2024-10-06 01:00 | PTCARENOTE ---
Assumed care of pt ~0015. Pt AAOx3. SR to sinus tach on the tele monitor. HR 90s. Audible heart tones. BP stable. B/L DP pulses palpable. Right radial pulse palpable. Left ulnar pulse weak on palpation. Left hand w/ trace edema. Pt placed on 2 L NC
for POX 87-88%. Pt POX now 92-94% on 2L NC. Occasional cough. Lung sounds diminished throughout. Deep breathing and IS encouraged. Abdomen round/nontender. +BSx4. Pt states he is voiding. All surgical sites stable. Right IJ cordis w/ PIVx2 intact.
Pt denies pain at this time. See worklist for full nursing assessment. Pt repositioned in bed. Call retana within reach.
--- NOTE | 2024-10-06 01:00 | PTCARENOTE ---
Assumed care of pt ~0015. Pt AAOx3. Follows commands appropriately. SR to on the tele monitor. HR 70-80s. Audible heart tones. Temporary epicardial A/V wires insulated. BP stable. Palpable pulses throughout. Trace B/L hand edema. Pt placed on 2 L
NC. POX 96%. Lungs sounds diminished in B/L base. Occasional harsh cough. Deep breathing and IS encouraged. CT dressing C/D/I. Abdomen round. +BSx4. Pt voiding. All surgical sites stable. PIVx1 intact. Pt assisted OOB to the bathroom and then
repositioned back in bed. See worklist for full nursing assessment. Call retana within reach.
--- NOTE | 2024-10-06 03:00 | W.PN.CT ---
Today's Communication / Plan
-
pod #3
- continue ASA, Plavix, Crestor, up titrate Toprol to lower heart rate
- titrate GDMT as BP allows
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
- trend fevers/WBC, temp/WBC curve is downward trending-no obvious fever source
- Norvasc for radial patency x 3 months
Assessment / Plan
-
- Mv-CAD - s/p Multi arterial CABG x 4 (In situ FERNANDES to LAD, Ao to Radial to OM, Ao to RSVG to high diagonal, Ao to RSVG to RPDA); Left atrial appendage exclusion [35 mm device]; Rigid sternal fixation with 2 plates (16 mm screws throughout) by
Urmila on 10/03/24, pod #3
- Intraop DELORIS: LVEF preop was abnormal at 40% with significant regional wall motion abnormalities pertaining to the inferior wall hypokinesis. Following surgery, his EF looked more robust at 55% and the inferior wall hypokinesis had improved
significantly. The mitral valve had a mild to maybe moderate degree of insufficiency preoperatively that improved to mild degree postoperatively.
- Multivessel coronary artery disease
- STEMI, inferior wall with acute ischemic cardiomyopathy, LV EF of 40% with regional wall motion abnormality (pre), improved to 50-55% (post)
- History of UTI and prostatitis
- Hyperlipidemia
- Hypertension
- L renal CA - s/p partial nephrectomy
- Elevated temp
- Acute postop blood loss anemia
- Acute postop atelectasis
- Acute postop hypovolemia with subsequent hypervolemia
Discussed patient care with: Nursing and Care Team
Subjective
Procedure
CABG x 4 (In situ FERNANDES to LAD, Ao to Radial to OM, Ao to RSVG to high diagonal, Ao to RSVG to RPDA), Left atrial appendage exclusion [35 mm device], Rigid sternal fixation with [address] Kearns 10/03/24
-
Date of Service: October 06, 2024
Objective Data
-
PT 16.5 Sec (11.4-14.6) H 10/03/24 11:42
INR 1.30 10/03/24 11:42
APTT 34.5 Sec (23.4-35.0) 10/03/24 11:42
Vital Signs
Vital Signs
Temp Pulse Resp BP Pulse Ox
98.7 F 92 16 114/78 93
10/06/24 00:20 10/06/24 00:20 10/06/24 00:20 10/06/24 00:20 10/06/24 00:45
CT Intake/Output/Weight
10/05/24 10/05/24 10/06/24
06:59 18:59 06:59
Intake Total 120 / 214.6 430 / 570 140 / 570
Output Total 650 / 735 1050 / 1050
Balance -530 / -520.4 -620 / -480 140 / -480
SaO2: 93
Physical Exam
-
General: AOx3
Cardiovascular: Regular rate & rhythm, No Murmurs, No Rub and No Gallop
Respiratory: Clear and Equal
Sternum: Stable
Incision: Clean and Dry
Extremities: No Edema and No Erythema
Data Reviewed
-
Lab Results: Results Reviewed
Medications: Active Meds Reviewed
Chest X-Ray: Image Reviewed
ECG: Image Reviewed
--- NOTE | 2024-10-06 04:05 | PTCARENOTE ---
Assessment unchanged. VSS. Pt is 99% on RA. All surgical sites stable. Labs drawn and sent. Pt assisted OOB to the chair. Pt states the sitting in the chair helps them breathe better. No c/o pain at this time. Call retana within reach.
[2024-10-06 04:08] LABS: Hematocrit 27.9 % (39.0-52.0); Hemoglobin 9.7 g/dL (13.0-18.0); Mean Corp Hgb Conc. 34.8 g/dL (33.0-37.0); Mean Corpuscular Volume 97.2 fL (80.0-94.0); Platelet Count 260 10^3/uL (130-400); Red Cell Dist. Width 13.1 % (11.5-14.5)
[2024-10-06 04:25] LABS: Blood Urea Nitrogen 28 mg/dl (9-20); Calcium 8.4 mg/dl (8.4-10.2); Carbon Dioxide 23 mmol/L (22-30); Chloride 102 mmol/L (98-107); Estimated Creatinine Clearance 110 ml/min; Glucose 113 mg/dl (70-99); Magnesium 2.4 mg/dl (1.6-2.3); Potassium 4.6 mmol/L (3.5-5.1); Sodium 134 mmol/L (135-145); eGFR > 60.00
[2024-10-06] MEDS: TYLENOL 1000 MG PO (06:11)
--- NOTE | 2024-10-06 08:30 | PTCARENOTE ---
Addendum entered by Ingrid Lu RN 10/06/24 09:22:
Right radial and Left ulnar pulses palpable. (NOT bilateral radial)
Original Note:
Resumed care of patient. Pt assessed while he was sitting in the chair. Pt alert and oriented x4. Pt denies pain, shortness of breath, and nausea. CREWS with equal strength throughout. Ambulated in the hallway, stairs completed. Pt tolerated. SR-ST on
tele with rates in the 90s-100s. BP 105/71. Heart tones audible. Bilateral radial and DP pulses palpable. Trace left hand edema noted. POX 95% on RA. Lungs diminished in the bases. IS encouraged 1000ml achieved. Occasional productive cough. Abdomen
soft, nontender. +BS. Tolerating diet. Voids adequate amounts of clear yellow urine in the urinal. Sternal incision approximated, [employer]OUNDATION [employer]AGE [employer]ER. 3 old chest tube sites open, not approximated, [employer]OUNDATION STAGE TE[employer]ER, no drainage. Right groin puncture [employer]. Right SVG harvest site
approximated, [employer]OUNDATION STAGE TE[employer]ER. Right IJ cordis intact. Right arm PIV x2 intact. See MAR for medication administration. See worklist for complete nursing assessment. Plan of care reviewed and patient in agreement.
[2024-10-06] MEDS: BACTROBAN 2% OINTMENT 1 APPLIC NASAL (08:59)
[2024-10-06] MEDS: MUCINEX 600 MG PO (09:00)
[2024-10-06] MEDS: SENOKOT-S 1 TABLET PO (09:00)
[2024-10-06] MEDS: VITAMIN C 500 MG PO (09:00)
[2024-10-06] MEDS: NEURONTIN 100 MG PO (09:00)
[2024-10-06] MEDS: PLAVIX 75 MG PO (09:00)
[2024-10-06] MEDS: FEOSOL 325 MG PO (09:00)
[2024-10-06] MEDS: LOW STRENGTH ASPIRIN 81 MG PO (09:00)
[2024-10-06] MEDS: PROTONIX 40 MG PO (09:00)
[2024-10-06] MEDS: MAGNESIUM OXIDE 500 MG PO (09:00)
[2024-10-06] MEDS: PACERONE 200 MG PO (09:00)
[2024-10-06] MEDS: LIDOCAINE 4% PATCH TOPICAL (09:01)
[2024-10-06] MEDS: NSS IV (09:01)
[2024-10-06] MEDS: LOPRESSOR 75 MG PO (09:05)
[2024-10-06] MEDS: LOPRESSOR PO (09:06)
[2024-10-06] MEDS: NORVASC 2.5 MG PO (10:24)
--- NOTE | 2024-10-06 10:41 | W.DCSUMMARY ---
Discharge Summary
Discharge Data
Date of Admission: 09/30/24
Date of Discharge: 10/06/24
Total time spent discharging patient (in min): 35
-
Pending Results: No
Hospital Course
Primary care physician: None
Outpatient president ceo & founder: None
Inpatient consultants: Cardiology (left heart cath by Juan Daniel Grace MD), Blood Bank Technician
Procedures:
1. Left heart cath
2. Coronary artery bypass grafting x 4, FERNANDES�LAD, radial�OM, SVG�diagonal, SVG�RPDA, left atrial appendage exclusion with 35mm atrial clip
Primary Diagnosis:
1. STEMI, coronary artery disease
Secondary Diagnoses:
1. Hypertension
2. Hyperlipidemia
3. Left renal cancer status post partial nephrectomy
HPI: Patient was admitted with a STEMI. Following admission he was recommended for cardiac surgery evaluation for CABG. Following evaluation by the attending surgeon he was deemed an appropriate surgical candidate and underwent the procedure on
10/03/2024.
Hospital course: Patient was admitted following a STEMI and underwent CABG on 10/03/[address] Juan David Kearns. Please refer to the separately dictated operative report for complete details. Postoperatively the patient progressed well. He was
extubated at 1315 per usual postop protocol. He was weaned from vasoactive medications over the course of postoperative day 0.
Postoperative day #1: Patient remains off vasoactive drips. Norvasc was started for radial artery prophylaxis. Left pleural chest tube was removed. Later in the day mediastinal chest tubes were also removed and epicardial wire was removed.
Postoperative day #2: Beta-blockers were uptitrated due to tachycardia. Patient was given IV Lasix. Patient had low-grade fevers which were attributed to postoperative atelectasis.
Postop day #3: Patient was cleared for discharge to home. Discharge instructions were reviewed extensively with the patient prior to him leaving today and his questions were answered to his satisfaction. Notably the patient's beta-benoit was
again uptitrated to 75 mg twice daily. This may need to be further uptitrated in the outpatient setting pending response. Patient was discharged with a heart rate in the low 90s and normal sinus rhythm.
Home medication changes: Patient was on no medications prior to admission. Patient was started on usual CAD guideline directed therapy with aspirin 81 mg daily, Crestor 40 mg daily, metoprolol 75 mg twice daily. Patient will be on dual
antiplatelet therapyWith Plavix in addition to aspirin for 1 year following CABG. He will also be on Norvasc 2.5 mg daily for 6 months for radial artery prophylaxis. He was also given a 7-day course of oxycodone as needed for acute postoperative
pain.
Discharge Plan
-
Patient Disposition: Home (Routine Discharge)
Discharge Diagnosis/Procedures: - Multivessel coronary artery disease - Status post Multi arterial CABG x 4 (In situ FERNANDES to LAD, Radial to OM, RSVG to high diagonal, RSVG to RPDA); Left atrial appendage exclusion [35 mm device]; Rigid sternal
fixation with 2 plates (16 mm screws throughout) by Dr. Kearns on 10/03/24
- Intraoperative transesophageal Echocardiogram: Left ventricular ejection fractionpreop was abnormal at 40% with significant regional wall motion abnormalities pertaining to the inferior wall hypokinesis. Following surgery, his EF looked more
robust at 55% and the inferior wall hypokinesis had improved significantly. The mitral valve had a mild to maybe moderate degree of insufficiency preoperatively that improved to mild degree postoperatively.
- Multivessel coronary artery disease
- STEMI, inferior wall with acute ischemic cardiomyopathy, LV EF of 40% with regional wall motion abnormality (pre), improved to 50-55% (post)
- History of Urinary tract infectionand prostatitis
- Hyperlipidemia
- Hypertension
- Left renal cancer status post partial nephrectomy
- Fever
- Acute postop blood loss anemia
- Acute postop atelectasis
- Acute postop hypovolemia with subsequent hypervolemia
Condition: Good
Diet: Low Cholesterol and Low Sodium
Activity: No strenuous activity
Driving Restrictions: Not until seen by your Dr
Bathing Restrictions: OK to Shower
Other Services: Cardiac Rehab
Specialty Instructions: Weigh Daily- Call MD for wt gain/loss 3 lbs overnight/5 lbs in 1 week
Activity Restrictions/Additional Instructions:
Please Call to make appointments for Phase II Cardiac Rehab
1) [facility]: [phone]
2) [facility]: [phone]
Referrals:
CT Transitional Care Nurse [Outside] - in two to three days
Referral Note:
The Cardiothoracic Transitional Care Nurse will call you to set up a visit in 1-2 days.
Mirta Hernandez NP [Specified Professional Personl, Cardiology] - 11/15/24 9:40 am
UNKNOWN - PT DOES,NOT KNOW [Family Provider]
Nasra Mancera CRNP [Specified Professional Personl, Cardiac Surgery] - 11/01/24 1:30 pm
Prescriptions:
New
acetaminophen 325 mg Tablet
650 mg PO Q4HPRN PRN (Reason: mild pain,headache,temp >101F ) Qty: 30 0RF
amlodipine 2.5 mg Tablet
2.5 mg PO DAILY 180 Days Qty: 30 2RF
clopidogrel 75 mg Tablet
75 mg PO DAILY 365 Days Qty: 30 2RF
metoprolol tartrate 50 mg Tablet
75 mg PO Q12 Qty: 60 2RF
aspirin 81 mg Tablet,Chewable
81 mg PO DAILY Qty: 30 0RF
oxycodone 5 mg Tablet
5 mg PO Q4HPRN PRN (Reason: moderate pain) 7 Days Qty: 28 0RF
rosuvastatin 40 mg Tablet
40 mg PO QPM Qty: 30 2RF
Discharge Orders:
Discharge Patient (As Directed); Ordered 10/06/24
Ordered By: Abner Fowler
Care Plan Goals
Care Plan Goals:
Problem: Readiness for enhanced knowledge related to diagnosis and treatment plan
Goal: Understand your diagnosis and treatment plan needs, including medications if applicable.
Instructions: Know your diagnosis, underlying causes and treatment plan options, including medications if applicable. Consult with your health care team to learn about your diagnosis and treatment plan, including medications if applicable.
Discharge Date and Time
Print Language: EQUATORIAL GUINEAN
--- NOTE | 2024-10-06 12:00 | PTCARENOTE ---
Pt assisted back to bed. Right IJ cordis d/c. PIV x1 d/c. Tele pack removed. Pt showered. Tolerated. VSS.
--- NOTE | 2024-10-06 12:30 | PTCARENOTE ---
Discharge order received. Instructions reviewed with patient and , all questions answered. Pt escorted to car via wheelchair.
== END 2024-10-06 13:16 | disposition home or self-care (01) | DRG 233 ==
LOC: CVICU 15:32
PROVIDERS: Anesthesiology; Nurse Practitioner; Physician Assistant Medical; ADMITTING PHYSICIAN Student in an Organized Health Care Education/Training Program; ATTENDING PHYSICIAN Thoracic Surgery (Cardiothoracic Vascular Surgery); CONSULT PHYSICIAN Internal Medicine Critical Care Medicine; EMERGENCY PHYSICIAN Student in an Organized Health Care Education/Training Program; OTHER PHYSICIAN Thoracic Surgery (Cardiothoracic Vascular Surgery)
PROC: 4A023N8 Measurement of Cardiac Sampling and Pressure, Bilateral, Percutaneous Approach (ICD-10-PCS; 2024-09-30)
PROC: B2111ZZ Fluoroscopy of Multiple Coronary Arteries using Low Osmolar Contrast (ICD-10-PCS; 2024-09-30)
PROC: B2151ZZ Fluoroscopy of Left Heart using Low Osmolar Contrast (ICD-10-PCS; 2024-09-30)
PROC: 03BC4ZZ Excision of Left Radial Artery, Percutaneous Endoscopic Approach (ICD-10-PCS; 2024-10-03)
PROC: 06BP4ZZ Excision of Right Saphenous Vein, Percutaneous Endoscopic Approach (ICD-10-PCS; 2024-10-03)
PROC: 5A1221Z Performance of Cardiac Output, Continuous (ICD-10-PCS; 2024-10-03)
PROC: 021109W Bypass Coronary Artery, Two Arteries from Aorta with Autologous Venous Tissue, Open Approach (ICD-10-PCS; 2024-10-03)
PROC: 02100AW Bypass Coronary Artery, One Artery from Aorta with Autologous Arterial Tissue, Open Approach (ICD-10-PCS; 2024-10-03)
PROC: B24BZZ4 Ultrasonography of Heart with Aorta, Transesophageal (ICD-10-PCS; 2024-10-03)
PROC: 02L70CK Occlusion of Left Atrial Appendage with Extraluminal Device, Open Approach (ICD-10-PCS; 2024-10-03)
PROC: 02100Z9 Bypass Coronary Artery, One Artery from Left Internal Mammary, Open Approach (ICD-10-PCS; 2024-10-03)
DX: I21.19 ST elevation (STEMI) myocardial infarction involving other coronary artery of inferior wall (principal); I50.21 Acute systolic (congestive) heart failure; D62 Acute posthemorrhagic anemia; J98.11 Atelectasis; I27.20 Pulmonary hypertension, unspecified; E78.01 Familial hypercholesterolemia; I25.10 Atherosclerotic heart disease of native coronary artery without angina pectoris; I25.5 Ischemic cardiomyopathy; E86.1 Hypovolemia; E87.70 Fluid overload, unspecified; I11.0 Hypertensive heart disease with heart failure; Z82.49 Family history of ischemic heart disease and other diseases of the circulatory system; Z85.528 Personal history of other malignant neoplasm of kidney; Z87.440 Personal history of urinary (tract) infections; Z90.5 Acquired absence of kidney
CPT/HCPCS: 36600; 71045; 71250; 80048; 80053; 80061; 81003; 81015; 82248; 82330; 82565; 82805; 82810; 82947; 82962; 83036; 83695; 83735; 84132; 84302; 84484; 84520; 85014; 85018; 85025; 85027; 85049; 85347; 85610; 85730; 86850; 86900; 86901; 86920; 87086; 93005; 93306; 93312; 93320; 93325; 93460; 93880; 93923; 93931; 94002; 99152; 99153; 99291; C1753; C1769; C1894; J2916; Q9967

== ENCOUNTER → 2025-01-12 13:12 | Outpatient (REF) | payer BC, SELFPAY | LOC: RCS 13:12 | PROVIDERS: ATTENDING PHYSICIAN Nurse Practitioner; FAMILY PHYSICIAN Family Medicine Geriatric Medicine | DX: I21.3 ST elevation (STEMI) myocardial infarction of unspecified site (principal); I25.10 Atherosclerotic heart disease of native coronary artery without angina pectoris | CPT/HCPCS: 93308; 93321; 93325 ==